=== PATIENT | male | born 1960 | race Caucasian/White ===

== ENCOUNTER 2022-10-06 12:06 | Inpatient (IN) | payer OTHER ==
[~2022-10-06] VITALS: Ht 193 cm; Wt 151.0 kg
[2022-10-06 13:18] LABS: Basophils # (auto) 0 10 ^3/uL (0-0.2); Basophils % (auto) 0.1 % (0.0-2.0); Eosinophils # (auto) 0 10 ^3/uL (0-0.8); Hematocrit 38.6 % (41.0-53.0); Hemoglobin 13.3 g/dL (13.5-17.5); Lymphocytes % (auto) 13.4 % (10.0-50.0); Mean Corpuscular Hemoglobin 29.2 pg (28.0-32.0); Mean Corpuscular Hgb Conc. 34.6 g/dL (32.0-36.0); Mean Corpuscular Volume 84.6 fL (80.0-100.0); Monocytes % (auto) 13.1 % (0.0-12.0); Neutrophils # (auto) 5.4 10 ^3/uL (1.6-8.6); Neutrophils % (auto) 73.4 % (37.0-80.0); Red Blood Cells 4.56 10^6/uL (4.5-5.90); Red Cell Distribution Width 13.9 % (11.8-14.3); White Blood Cell 7.3 10^3/uL (4.4-10.8)
[2022-10-06 13:56] LABS: Albumin 3.5 g/dL (3.4-5.0); Calcium 8.8 mg/dL (8.5-10.1); Potassium 3.3 mmol/L (3.5-5.1)
[2022-10-06 14:02] LABS: BUN/Creatinine Ratio 6.3 (10.0-20.0); Bilirubin, Total 0.6 mg/dL (0.2-1.0)
[2022-10-06 14:12] LABS: Urine Bacteria FEW /hpf (None Seen); Urine Blood TRACE /uL (Negative); Urine Specific Gravity 1.007 (1.001-1.035); Urine WBC 19 /hpf (0 - 3)
[2022-10-06] MEDS ORDERED: MORPHINE SULFATE 4 MG/ML SYR/VIAL IV ONE ×2 (17:15)
[2022-10-06] MEDS ORDERED: ONDANSETRON HCL 4 MG/2 ML VIAL IV ONE ×2 (17:15)
[2022-10-06] MEDS ORDERED: HYDROmorphone HCL 2 MG/ML VL/or syr IV PRN (19:30)
[2022-10-06] MEDS ORDERED: NITROGLYCERIN 0.4 MG SL TAB SL PRN (19:30)
[2022-10-06] MEDS ORDERED: LACTATED RINGER'S 1,000 ML IV SCH (20:15)
[2022-10-06] MEDS ORDERED: DEXTROSE (50%) 50ML SYRG IV PRN (20:15)
[2022-10-06] MEDS: HYDROmorphone HCL 2 MG/ML VL/or syr IV PRN (21:26)
[2022-10-06] MEDS: SODIUM CHLORIDE 0.9% 1,000 ML IV SCH (22:37)
[2022-10-06] MEDS: metroNIDAZOLE 500MG/100ML 100 ML IV SCH (22:37)
[2022-10-06] MEDS: PIPERACILLIN-TAZOB 3.375GM 100 ML IV SCH (23:46)
[2022-10-07] MEDS: InsuLIN REG 1unit/0.01ml Soln (100units/ml) SC SCH ×5 (00:30→22:00)
[2022-10-07] MEDS: ACCU-CHEK COMFORT CURVE STRIP VI SCH ×5 (00:30→21:17)
[2022-10-07] MEDS: SODIUM CHLORIDE 0.9% 1,000 ML IV SCH ×3 (04:30→20:30)
[2022-10-07] MEDS: ONDANSETRON HCL 4 MG/2 ML VIAL IV PRN ×3 (05:50→21:15)
[2022-10-07] MEDS: metroNIDAZOLE 500MG/100ML 100 ML IV SCH ×2 (06:11→13:38)
[2022-10-07 06:36] LABS: Basophils # (auto) 0 10 ^3/uL (0-0.2); Basophils % (auto) 0.1 % (0.0-2.0); Eosinophils # (auto) 0 10 ^3/uL (0-0.8); Hematocrit 35.9 % (41.0-53.0); Hemoglobin 12.6 g/dL (13.5-17.5); Lymphocytes # (auto) 1.1 10 ^3/uL (0.4-5.4); Lymphocytes % (auto) 17.5 % (10.0-50.0); Mean Corpuscular Hemoglobin 29.7 pg (28.0-32.0); Mean Corpuscular Volume 84.8 fL (80.0-100.0); Monocytes # (auto) 0.9 10 ^3/uL (0-1.3); Monocytes % (auto) 13.9 % (0.0-12.0); Neutrophils # (auto) 4.2 10 ^3/uL (1.6-8.6); Neutrophils % (auto) 68.5 % (37.0-80.0); Nucleated Red Blood Cells % 0.3 %; Red Blood Cells 4.23 10^6/uL (4.5-5.90); White Blood Cell 6.2 10^3/uL (4.4-10.8)
[2022-10-07 06:48] LABS: INR 1.05 (0.9-1.15); Partial Thromboplastin Time 28.1 SEC (24.5-34.5)
[2022-10-07 07:01] LABS: Potassium 3.6 mmol/L (3.5-5.1)
[2022-10-07 07:10] LABS: Albumin 3.2 g/dL (3.4-5.0); Bilirubin, Total 0.5 mg/dL (0.2-1.0); Calcium 8.6 mg/dL (8.5-10.1); Total Protein 6.8 g/dL (6.4-8.2)
[2022-10-07] MEDS ORDERED: GASTROGRAFIN 120 ML SOL ONE (09:03)
[2022-10-07] MEDS ORDERED: LIDOCAINE 2% JELLY 11ml (GLYDO) UR ONE (09:45)
[2022-10-07] MEDS: PIPERACILLIN-TAZOB 3.375GM 100 ML IV SCH (10:00)
[2022-10-07] MEDS: PANTOPRAZOLE 40 MG/10 ML VIAL INJ IV SCH (10:00)
[2022-10-07] MEDS ORDERED: DEXTROSE (50%) 50ML SYRG IV PRN (14:45)
[2022-10-07] MEDS: cefTRIAXone 1GM/50ML D5W 50 ML IV SCH (16:00)
[2022-10-07] MEDS: HYDROmorphone HCL 2 MG/ML VL/or syr IV PRN (21:15)
[2022-10-07 22:00] VITALS: BP 155/82
[2022-10-08 04:44] LABS: Urine Bacteria FEW /hpf (None Seen); Urine Blood 3+ /uL (Negative); Urine Specific Gravity 1.008 (1.001-1.035); Urine WBC 68 /hpf (0 - 3); Urine WBC Clumps PRESENT /hpf (None Seen)
[2022-10-08] MEDS: SODIUM CHLORIDE 0.9% 1,000 ML IV SCH ×3 (04:53→20:30)
[2022-10-08 04:58] LABS: Creatinine, Urine 76 mg/dL (30.0-125.0); Sodium Urine 62 mmol/L (40-220)
[2022-10-08 05:00] VITALS: BP 124/102
[2022-10-08] MEDS: InsuLIN REG 1unit/0.01ml Soln (100units/ml) SC SCH ×4 (06:00→21:52)
[2022-10-08] MEDS: ACCU-CHEK COMFORT CURVE STRIP VI SCH ×4 (06:01→21:52)
[2022-10-08 06:48] LABS: Basophils # (auto) 0 10 ^3/uL (0-0.2); Basophils % (auto) 0.1 % (0.0-2.0); Eosinophils # (auto) 0 10 ^3/uL (0-0.8); Hematocrit 38.5 % (41.0-53.0); Hemoglobin 13.2 g/dL (13.5-17.5); Lymphocytes % (auto) 14.3 % (10.0-50.0); Mean Corpuscular Hemoglobin 29.4 pg (28.0-32.0); Mean Corpuscular Hgb Conc. 34.2 g/dL (32.0-36.0); Mean Corpuscular Volume 85.9 fL (80.0-100.0); Monocytes # (auto) 0.8 10 ^3/uL (0-1.3); Monocytes % (auto) 11.5 % (0.0-12.0); Neutrophils # (auto) 5.1 10 ^3/uL (1.6-8.6); Neutrophils % (auto) 74.1 % (37.0-80.0); Nucleated Red Blood Cells % 0.1 %; Red Blood Cells 4.49 10^6/uL (4.5-5.90); Red Cell Distribution Width 14.1 % (11.8-14.3); White Blood Cell 6.9 10^3/uL (4.4-10.8)
[2022-10-08 07:08] LABS: Albumin 3.4 g/dL (3.4-5.0); Calcium 8.9 mg/dL (8.5-10.1); Potassium 3.8 mmol/L (3.5-5.1)
[2022-10-08 07:09] LABS: % Iron Saturation 17.3 % (20-55)
[2022-10-08 07:18] LABS: BUN/Creatinine Ratio 6.1 (10.0-20.0); Bilirubin, Direct 0.2 mg/dL (0-0.2); Bilirubin, Total 0.4 mg/dL (0.2-1.0); Total Protein 7.1 g/dL (6.4-8.2); Uric Acid 14.2 mg/dL (3.5-7.2)
[2022-10-08 07:30] VITALS: BP 153/68
[2022-10-08 07:40] LABS: Phosphorus 10.5 mg/dL (2.5-4.90)
[2022-10-08 09:00] VITALS: BP 153/68
[2022-10-08] MEDS: PANTOPRAZOLE 40 MG/10 ML VIAL INJ IV SCH (10:40)
[2022-10-08 13:00] VITALS: BP 161/79
[2022-10-08] MEDS: cefTRIAXone 1GM/50ML D5W 50 ML IV SCH (16:05)
[2022-10-08] MEDS: HYDROmorphone HCL 2 MG/ML VL/or syr IV PRN ×2 (16:06→22:17)
[2022-10-08] MEDS: ONDANSETRON HCL 4 MG/2 ML VIAL IV PRN ×2 (16:06→22:23)
[2022-10-08 17:00] VITALS: BP 160/81
[2022-10-08] MEDS: CALCIUM ACETATE 667 MG CAP PO SCH (18:13)
[2022-10-08 22:00] VITALS: BP 180/83
[2022-10-08] MEDS ORDERED: ONDANSETRON HCL 4 MG/2 ML VIAL IM ONE (22:15)
[2022-10-08] MEDS ORDERED: ONDANSETRON HCL 4 MG/2 ML VIAL IV ONE (22:30)
[2022-10-09] MEDS: SODIUM CHLORIDE 0.9% 1,000 ML IV SCH ×2 (04:30→16:00)
[2022-10-09 04:44] VITALS: BP 171/83
[2022-10-09] MEDS: ONDANSETRON HCL 4 MG/2 ML VIAL IV PRN ×3 (05:53→21:29)
[2022-10-09] MEDS: HYDROmorphone HCL 2 MG/ML VL/or syr IV PRN (05:54)
[2022-10-09] MEDS: METOPROLOL TARTRATE 25 MG TAB PO SCH ×2 (06:13→10:09)
[2022-10-09] MEDS: amLODIPine BESYLATE 5 MG TAB PO SCH ×2 (06:13→10:10)
[2022-10-09] MEDS: InsuLIN REG 1unit/0.01ml Soln (100units/ml) SC SCH ×4 (07:00→21:44)
[2022-10-09] MEDS: ACCU-CHEK COMFORT CURVE STRIP VI SCH ×4 (07:00→21:29)
[2022-10-09 09:00] VITALS: BP 175/90
[2022-10-09 09:39] LABS: BUN/Creatinine Ratio 6.3 (10.0-20.0); Calcium 9.2 mg/dL (8.5-10.1); Potassium 4.3 mmol/L (3.5-5.1)
[2022-10-09] MEDS: DOCUSATE SOD 100 MG CAP PO SCH ×2 (10:08→21:29)
[2022-10-09] MEDS: CALCIUM ACETATE 667 MG CAP PO SCH ×3 (10:08→16:47)
[2022-10-09] MEDS: ALLOPURINOL 100 MG TAB PO SCH (10:08)
[2022-10-09] MEDS: PANTOPRAZOLE 40 MG/10 ML VIAL INJ IV SCH (10:10)
[2022-10-09 13:00] VITALS: BP 153/97
[2022-10-09] MEDS ORDERED: BUMETANIDE 2.5mg/10ml (0.25 mg/ml) INJ IV ONE (14:30)
[2022-10-09] MEDS: cefTRIAXone 1GM/50ML D5W 50 ML IV SCH (16:48)
[2022-10-09 17:00] VITALS: BP 156/89
[2022-10-09] MEDS ORDERED: LACTULOSE 20Gm/30ML SOLN PO ONE (19:15)
[2022-10-09 21:35] VITALS: BP 162/93
[2022-10-09 23:05] VITALS: BP 145/61
[2022-10-10 04:52] VITALS: BP 169/99
[2022-10-10] MEDS: SODIUM CHLORIDE 0.9% 1,000 ML IV SCH ×2 (05:20→18:54)
[2022-10-10] MEDS: ONDANSETRON HCL 4 MG/2 ML VIAL IV PRN (06:19)
[2022-10-10] MEDS: ACCU-CHEK COMFORT CURVE STRIP VI SCH ×4 (06:19→21:24)
[2022-10-10 06:20] VITALS: BP 130/70
[2022-10-10] MEDS: InsuLIN REG 1unit/0.01ml Soln (100units/ml) SC SCH ×4 (06:23→22:52)
[2022-10-10 07:07] LABS: Immunoglobulin G, Serum 779 mg/dL (603-1613)
[2022-10-10 07:09] LABS: BUN/Creatinine Ratio 6.6 (10.0-20.0); Potassium 3.9 mmol/L (3.5-5.1)
[2022-10-10 09:00] VITALS: BP 187/89
[2022-10-10] MEDS: PANTOPRAZOLE 40 MG/10 ML VIAL INJ IV SCH (09:54)
[2022-10-10] MEDS: ALLOPURINOL 100 MG TAB PO SCH (09:54)
[2022-10-10] MEDS: METOPROLOL TARTRATE 25 MG TAB PO SCH ×2 (09:54→23:15)
[2022-10-10] MEDS: CALCIUM ACETATE 667 MG CAP PO SCH ×3 (09:54→18:24)
[2022-10-10] MEDS: amLODIPine BESYLATE 5 MG TAB PO SCH (09:55)
[2022-10-10] MEDS: DOCUSATE SOD 100 MG CAP PO SCH ×2 (09:55→23:14)
[2022-10-10 13:17] VITALS: BP 159/78
[2022-10-10 17:00] VITALS: BP 157/88
[2022-10-10] MEDS: cefTRIAXone 1GM/50ML D5W 50 ML IV SCH (18:24)
[2022-10-10 22:00] VITALS: BP 120/78
[2022-10-11 05:00] VITALS: BP 154/79
[2022-10-11 05:09] LABS: Hematocrit 37.7 % (41.0-53.0); Hemoglobin 13.1 g/dL (13.5-17.5)
[2022-10-11 05:12] LABS: Basophils # (auto) 0 10 ^3/uL (0-0.2); Basophils % (auto) 0.1 % (0.0-2.0); Eosinophils # (auto) 0 10 ^3/uL (0-0.8); Hematocrit 37.4 % (41.0-53.0); Lymphocytes # (auto) 1.3 10 ^3/uL (0.4-5.4); Lymphocytes % (auto) 15.3 % (10.0-50.0); Mean Corpuscular Hemoglobin 29.4 pg (28.0-32.0); Mean Corpuscular Hgb Conc. 34.8 g/dL (32.0-36.0); Mean Corpuscular Volume 84.6 fL (80.0-100.0); Monocytes # (auto) 0.8 10 ^3/uL (0-1.3); Monocytes % (auto) 9.4 % (0.0-12.0); Neutrophils # (auto) 6.2 10 ^3/uL (1.6-8.6); Neutrophils % (auto) 75.2 % (37.0-80.0); Nucleated Red Blood Cells % 0.1 %; Red Blood Cells 4.41 10^6/uL (4.5-5.90); Red Cell Distribution Width 13.9 % (11.8-14.3); White Blood Cell 8.3 10^3/uL (4.4-10.8)
[2022-10-11] MEDS: ONDANSETRON HCL 4 MG/2 ML VIAL IV PRN ×2 (05:17→22:12)
[2022-10-11 05:30] LABS: % Iron Saturation 34.3 % (20-55)
[2022-10-11 05:31] LABS: BUN/Creatinine Ratio 7.4 (10.0-20.0); Calcium 8.9 mg/dL (8.5-10.1); Potassium 4.1 mmol/L (3.5-5.1)
[2022-10-11] MEDS: InsuLIN REG 1unit/0.01ml Soln (100units/ml) SC SCH ×4 (06:43→22:10)
[2022-10-11] MEDS: ACCU-CHEK COMFORT CURVE STRIP VI SCH ×4 (06:43→21:54)
[2022-10-11] MEDS ORDERED: SODIUM CHL 0.9% 1000 ML BAG XX ONE (07:00)
[2022-10-11] MEDS: SODIUM CHLORIDE 0.9% 1,000 ML IV SCH ×2 (08:00→21:20)
[2022-10-11] MEDS: CALCIUM ACETATE 667 MG CAP PO SCH ×3 (08:00→18:15)
[2022-10-11 08:54] VITALS: BP 176/82
[2022-10-11] MEDS: DOCUSATE SOD 100 MG CAP PO SCH ×2 (09:06→21:53)
[2022-10-11] MEDS: ALLOPURINOL 100 MG TAB PO SCH (10:00)
[2022-10-11] MEDS: PANTOPRAZOLE 40 MG/10 ML VIAL INJ IV SCH (10:00)
[2022-10-11] MEDS: METOPROLOL TARTRATE 25 MG TAB PO SCH ×2 (11:41→21:54)
[2022-10-11] MEDS: amLODIPine BESYLATE 5 MG TAB PO SCH (11:41)
[2022-10-11] MEDS ORDERED: LIDOCAINE 2%HCL (LOCAL ANESTH.) INJ 20ML MDV ONE (11:50)
[2022-10-11 12:25] VITALS: BP 171/92
[2022-10-11] MEDS ORDERED: fentaNYL CITRATE 100 MCG/2 ML VL IV ONE (12:30)
[2022-10-11] MEDS ORDERED: MIDAZOLAM HCL 2MG/2ML 2ml VIAL (1mg/ml) IV ONE (12:30)
[2022-10-11] MEDS ORDERED: HEPARIN SODIUM (PORCINE) 5000 UNITS/ML 1ML VIAL ONE (13:16)
[2022-10-11] MEDS: cefTRIAXone 1GM/50ML D5W 50 ML IV SCH (16:00)
[2022-10-11 16:28] VITALS: BP 160/79
[2022-10-11] MEDS: HYDROmorphone HCL 2 MG/ML VL/or syr IV PRN (19:21)
[2022-10-11 20:38] LABS: Anion Gap 11 (5-15); BUN/Creatinine Ratio 7.2 (10.0-20.0); Blood Urea Nitrogen 72 mg/dL (7-18); Calcium 8.4 mg/dL (8.5-10.1); Carbon Dioxide 23 mmol/L (21-32); Chloride 107 mmol/L (98-107); GFR African American 7 mL/min; GFR Non-African American 6 mL/min; Glucose 246 mg/dL (74-106); Sodium 141 mmol/L (136-145)
[2022-10-11 22:00] VITALS: BP 138/65
[2022-10-12 05:00] VITALS: BP 115/71
[2022-10-12] MEDS ORDERED: LORazepam 2MG/ML-1ML VIAL IV PRN (05:00)
[2022-10-12] MEDS: ACCU-CHEK COMFORT CURVE STRIP VI SCH ×4 (06:36→21:35)
[2022-10-12] MEDS: InsuLIN REG 1unit/0.01ml Soln (100units/ml) SC SCH ×4 (06:38→21:35)
[2022-10-12] MEDS ORDERED: SODIUM CHL 0.9% 1000 ML BAG XX ONE (07:00)
[2022-10-12] MEDS: CALCIUM ACETATE 667 MG CAP PO SCH ×3 (08:00→17:45)
[2022-10-12 08:44] VITALS: BP 164/85
[2022-10-12 09:30] LABS: BUN/Creatinine Ratio 7.1 (10.0-20.0); Calcium 8.8 mg/dL (8.5-10.1); Potassium 4.2 mmol/L (3.5-5.1)
[2022-10-12] MEDS: PANTOPRAZOLE 40 MG/10 ML VIAL INJ IV SCH (10:00)
[2022-10-12] MEDS: amLODIPine BESYLATE 5 MG TAB PO SCH (10:00)
[2022-10-12] MEDS: ALLOPURINOL 100 MG TAB PO SCH (10:00)
[2022-10-12] MEDS ORDERED: TEMAZEPAM 15 MG CAP PO PRN (10:00)
[2022-10-12] MEDS: DOCUSATE SOD 100 MG CAP PO SCH ×2 (10:00→21:34)
[2022-10-12] MEDS: METOPROLOL TARTRATE 25 MG TAB PO SCH ×2 (10:00→21:34)
[2022-10-12 12:40] VITALS: BP 123/84
[2022-10-12] MEDS: cefTRIAXone 1GM/50ML D5W 50 ML IV SCH (16:23)
[2022-10-12 17:00] VITALS: BP 147/84
[2022-10-12] MEDS: ONDANSETRON HCL 4 MG/2 ML VIAL IV PRN (18:29)
[2022-10-12] MEDS ORDERED: EPOETIN ALFA-EPBX 10,000 UNIT/1ML VIAL SC ONE (21:00)
[2022-10-12 22:00] VITALS: BP 131/49
[2022-10-13] MEDS: ONDANSETRON HCL 4 MG/2 ML VIAL IV PRN ×3 (00:38→23:24)
[2022-10-13] MEDS: HYDROcodone-ACET 5/325MG TAB PO PRN ×3 (00:39→22:13)
[2022-10-13 05:00] VITALS: BP 125/60
[2022-10-13 06:00] LABS: Calcium 9.3 mg/dL (8.5-10.1); Potassium 3.9 mmol/L (3.5-5.1)
[2022-10-13] MEDS: InsuLIN REG 1unit/0.01ml Soln (100units/ml) SC SCH ×2 (06:05→11:30)
[2022-10-13] MEDS: ACCU-CHEK COMFORT CURVE STRIP VI SCH ×2 (06:05→11:56)
[2022-10-13 09:00] VITALS: BP 148/84
[2022-10-13] MEDS: ALLOPURINOL 100 MG TAB PO SCH (09:54)
[2022-10-13] MEDS: PANTOPRAZOLE 40 MG/10 ML VIAL INJ IV SCH (09:54)
[2022-10-13] MEDS: METOPROLOL TARTRATE 25 MG TAB PO SCH ×2 (09:55→22:12)
[2022-10-13] MEDS: amLODIPine BESYLATE 5 MG TAB PO SCH (09:55)
[2022-10-13] MEDS: DOCUSATE SOD 100 MG CAP PO SCH ×2 (09:55→22:14)
[2022-10-13] MEDS: CALCIUM ACETATE 667 MG CAP PO SCH ×3 (09:56→17:00)
[2022-10-13 13:00] VITALS: BP 132/71
[2022-10-13 15:30] LABS: Albumin 3.6 g/dL (3.4-5.0); Calcium 9.1 mg/dL (8.5-10.1); Magnesium 2.4 mg/dL (1.6-2.6); Potassium 4.3 mmol/L (3.5-5.1)
[2022-10-13 15:34] LABS: Bilirubin, Total 0.3 mg/dL (0.2-1.0); Total Protein 6.9 g/dL (6.4-8.2)
[2022-10-13 17:00] VITALS: BP 127/84
[2022-10-13] MEDS: cefTRIAXone 1GM/50ML D5W 50 ML IV SCH (17:01)
[2022-10-13] MEDS ORDERED: MAGNESIUM SULFATE 1GM/100ML 100 ML IV ONE (21:00)
[2022-10-13 22:00] VITALS: BP 145/85
[2022-10-14 05:00] VITALS: BP 154/84
[2022-10-14] MEDS ORDERED: SODIUM CHL 0.9% 1000 ML BAG XX ONE (07:00)
[2022-10-14 09:00] VITALS: BP 155/77
[2022-10-14] MEDS: DOCUSATE SOD 100 MG CAP PO SCH ×2 (09:13→22:30)
[2022-10-14] MEDS: CALCIUM ACETATE 667 MG CAP PO SCH ×3 (09:13→18:13)
[2022-10-14] MEDS: ALLOPURINOL 100 MG TAB PO SCH (09:13)
[2022-10-14] MEDS: PANTOPRAZOLE 40 MG/10 ML VIAL INJ IV SCH (09:13)
[2022-10-14] MEDS: amLODIPine BESYLATE 5 MG TAB PO SCH (10:00)
[2022-10-14] MEDS: METOPROLOL TARTRATE 25 MG TAB PO SCH ×2 (10:00→22:30)
[2022-10-14 11:12] LABS: Calcium 9.2 mg/dL (8.5-10.1); Potassium 4.2 mmol/L (3.5-5.1)
[2022-10-14 11:18] LABS: BUN/Creatinine Ratio 8.4 (10.0-20.0)
[2022-10-14 13:00] VITALS: BP 148/59
[2022-10-14 14:54] LABS: Basophils # (auto) 0.1 10 ^3/uL (0-0.2); Basophils % (auto) 0.6 % (0.0-2.0); Eosinophils # (auto) 0 10 ^3/uL (0-0.8); Hematocrit 37.4 % (41.0-53.0); Hemoglobin 12.4 g/dL (13.5-17.5); Lymphocytes # (auto) 1.4 10 ^3/uL (0.4-5.4); Lymphocytes % (auto) 14.5 % (10.0-50.0); Mean Corpuscular Hemoglobin 28.9 pg (28.0-32.0); Mean Corpuscular Hgb Conc. 33.1 g/dL (32.0-36.0); Mean Corpuscular Volume 87.2 fL (80.0-100.0); Monocytes # (auto) 0.7 10 ^3/uL (0-1.3); Monocytes % (auto) 7.5 % (0.0-12.0); Neutrophils # (auto) 7.4 10 ^3/uL (1.6-8.6); Neutrophils % (auto) 77.4 % (37.0-80.0); Red Blood Cells 4.29 10^6/uL (4.5-5.90); Red Cell Distribution Width 13.8 % (11.8-14.3); White Blood Cell 9.6 10^3/uL (4.4-10.8)
[2022-10-14 16:51] VITALS: BP 161/86
[2022-10-14] MEDS: cefTRIAXone 1GM/50ML D5W 50 ML IV SCH (18:13)
[2022-10-14] MEDS ORDERED: EPOETIN ALFA-EPBX 10,000 UNIT/1ML VIAL SC ONE (21:00)
[2022-10-14 22:00] VITALS: BP 174/87
[2022-10-15 05:00] VITALS: BP 165/80
[2022-10-15 06:42] LABS: BUN/Creatinine Ratio 9.1 (10.0-20.0); Potassium 4.3 mmol/L (3.5-5.1)
[2022-10-15 08:44] VITALS: BP 159/89
[2022-10-15] MEDS: DOCUSATE SOD 100 MG CAP PO SCH ×2 (08:47→21:17)
[2022-10-15] MEDS: PANTOPRAZOLE 40 MG/10 ML VIAL INJ IV SCH (08:47)
[2022-10-15] MEDS: ALLOPURINOL 100 MG TAB PO SCH (08:47)
[2022-10-15] MEDS: amLODIPine BESYLATE 5 MG TAB PO SCH (08:48)
[2022-10-15] MEDS: METOPROLOL TARTRATE 25 MG TAB PO SCH ×2 (08:48→21:17)
[2022-10-15] MEDS: CALCIUM ACETATE 667 MG CAP PO SCH ×3 (08:52→21:17)
[2022-10-15 13:00] VITALS: BP 148/77
[2022-10-15 16:34] VITALS: BP 153/78
[2022-10-15] MEDS: SOD CHL 0.45% 1,000 ML IV SCH (18:15)
[2022-10-16 01:31] VITALS: BP 156/90
[2022-10-16] MEDS: SOD CHL 0.45% 1,000 ML IV SCH ×2 (02:15→10:15)
[2022-10-16] MEDS: HYDROcodone-ACET 5/325MG TAB PO PRN (04:28)
[2022-10-16 06:53] LABS: BUN/Creatinine Ratio 10.7 (10.0-20.0); Calcium 9.3 mg/dL (8.5-10.1); Potassium 4.3 mmol/L (3.5-5.1)
[2022-10-16] MEDS: PANTOPRAZOLE 40 MG/10 ML VIAL INJ IV SCH (08:23)
[2022-10-16] MEDS: DOCUSATE SOD 100 MG CAP PO SCH (08:23)
[2022-10-16] MEDS: CALCIUM ACETATE 667 MG CAP PO SCH ×2 (08:23→11:32)
[2022-10-16] MEDS: ALLOPURINOL 100 MG TAB PO SCH (08:23)
[2022-10-16] MEDS: METOPROLOL TARTRATE 25 MG TAB PO SCH (08:24)
[2022-10-16] MEDS: amLODIPine BESYLATE 5 MG TAB PO SCH (08:24)
[2022-10-16 08:30] VITALS: BP 182/108
[2022-10-16 13:00] VITALS: BP 148/91
[2022-10-16] MEDS ORDERED: AMLO1TAB23 PO (14:04)
[2022-10-16] MEDS ORDERED: METO-289 PO (14:04)
[2022-10-16 14:38] VITALS: BP 148/91
[2022-10-17 13:02] LABS: Hepatitis A Ab IgM Negative; Hepatitis B Core IgM Negative; Hepatitis C Antibody Negative (Negative)
== END 2022-10-16 15:25 | disposition home or self-care (01) | DRG 674 ==
LOC: EDBD 12:06 → ER 12:06 → TELE 19:31 → TELE-WESTW 10-07 17:30
PROVIDERS: ADMIT Nurse Practitioner Family; ATTEND Internal Medicine Geriatric Medicine
PROC: 0JH63XZ Insertion of Tunneled Vascular Access Device into Chest Subcutaneous Tissue and Fascia, Percutaneous Approach (ICD-10-PCS; principal; 2022-10-11)
PROC: 02HV33Z Insertion of Infusion Device into Superior Vena Cava, Percutaneous Approach (ICD-10-PCS; 2022-10-11)
PROC: B5181ZA Fluoroscopy of Superior Vena Cava using Low Osmolar Contrast, Guidance (ICD-10-PCS; 2022-10-11)
PROC: B548ZZA Ultrasonography of Superior Vena Cava, Guidance (ICD-10-PCS; 2022-10-11)
DX: N17.9 Acute kidney failure, unspecified (principal); K57.32 Diverticulitis of large intestine without perforation or abscess without bleeding; K80.00 Calculus of gallbladder with acute cholecystitis without obstruction; N30.00 Acute cystitis without hematuria; Z68.41 Body mass index [BMI] 40.0-44.9, adult; E78.5 Hyperlipidemia, unspecified; N20.0 Calculus of kidney; R33.9 Retention of urine, unspecified; N13.9 Obstructive and reflux uropathy, unspecified; E66.9 Obesity, unspecified; E83.39 Other disorders of phosphorus metabolism; N21.0 Calculus in bladder; I12.9 Hypertensive chronic kidney disease with stage 1 through stage 4 chronic kidney disease, or unspecified chronic kidney disease; E11.22 Type 2 diabetes mellitus with diabetic chronic kidney disease; E66.01 Morbid (severe) obesity due to excess calories; I25.10 Atherosclerotic heart disease of native coronary artery without angina pectoris; N18.9 Chronic kidney disease, unspecified; Z79.84 Long term (current) use of oral hypoglycemic drugs; Z80.8 Family history of malignant neoplasm of other organs or systems; Z82.49 Family history of ischemic heart disease and other diseases of the circulatory system; Z83.3 Family history of diabetes mellitus; Z80.3 Family history of malignant neoplasm of breast; Z95.5 Presence of coronary angioplasty implant and graft
CPT/HCPCS: 36415; 36558; 71045; 74176; 74250; 76705; 76775; 76937; 77001; 77074; 78226; 78306; 80048; 80053; 80061; 80074; 80076; 81001; 82550; 82570; 82728; 82784; 82962; 83036; 83540; 83550; 83690; 83735; 83874; 83880; 83883; 84100; 84154; 84155; 84156; 84165; 84300; 84443; 84550; 85014; 85018; 85025; 85610; 85730; 86334; 86335; 87040; 87081; 87086; 87340; 90935; 93005; 93306; 96365; 96375; 99291; C9113; G0378; J0696; J1642; J1815; J2250; J2405; J2543; J3490

== ENCOUNTER 2024-03-08 08:39 | Inpatient (IN) | payer BC, OTHER ==
[~2024-03-08] VITALS: Ht 193 cm; Wt 159.1 kg
[~2024-03-08 08:39] MED LIST: AMLO1TAB23 PO; METO-289 PO
--- NOTE | 2024-03-08 08:58 | ECG ---
[facility] Test Date: 2024-03-08 Test Time: 08:44:40 Pat Name: MICHELLE SHEPHERD Department: ER Room: 0284T Gender: M Script Developer: CHRISTINA : 1960 Requested By: JOHN DAN Order Number: [id number] Reading MD: Nba Hu Measurements Intervals [place] Rate: 63 P: 30 DE: 202 QRS: 20 QRSD: 117 T: 55 QT: 425 QTc: 436 Interpretive Statements Sinus rhythm Nonspecific intraventricular conduction delay Inferior infarct, old Baseline wander in lead(s) V1 Electronically Signed On 03-10-2024 16:13:10 PST by Nba Hu Please click the below link to view image of tracing.
[2024-03-08 09:15] LABS: Basophils # (auto) 0.1 10 ^3/uL (0-0.2); Basophils % (auto) 0.4 % (0.0-2.0); Eosinophils # (auto) 0 10 ^3/uL (0-0.8); Hematocrit 43.9 % (41.0-53.0); Hemoglobin 14.6 g/dL (13.5-17.5); Lymphocytes # (auto) 1.8 10 ^3/uL (0.4-5.4); Lymphocytes % (auto) 12.9 % (10.0-50.0); Mean Corpuscular Hemoglobin 28.9 pg (28.0-32.0); Mean Corpuscular Hgb Conc. 33.4 g/dL (32.0-36.0); Mean Corpuscular Volume 86.6 fL (80.0-100.0); Monocytes # (auto) 0.7 10 ^3/uL (0-1.3); Monocytes % (auto) 5.3 % (0.0-12.0); Neutrophils # (auto) 11.2 10 ^3/uL (1.6-8.6); Neutrophils % (auto) 81.4 % (37.0-80.0); Platelet Count (auto) 234 10^3/uL (140-450); Red Blood Cells 5.07 10^6/uL (4.5-5.90); Red Cell Distribution Width 14.1 % (11.8-14.3); White Blood Cell 13.8 10^3/uL (4.4-10.8)
--- NOTE | 2024-03-08 09:16 | ED.PDOC ---
History of Present Illness HPI Comments 63 y/o M, with a Hx of asthma, CAD, CKF, chronic edema, pre-DM, HLD, HTN, obesity, PTCA, and marijuana and EtOH use and a FMHx of CA, PA, and DM, presents with c/o shortness of breath since yesterday, last night. Patient endorses on sudden and unprovoked onset of difficulty breathing with no relief or improv ement with at home nebulizer or CPAP device use. Patient reports no recent injuries, sick contact, travel, spoiled food intake, or substance use/exposure. Patient denies having any chest pain, dyspnea, cough, fever, chills, or other associated symptoms or modifiers at this time. Chief Complaint: Shortness of Breath Time Seen by MD: 09:00 Primary Care Provider: TARA Garcia Notes: Nurses Notes, Medications, Allergies Allergies: Coded Allergies: NO KNOWN ALLERGIES (Unverified , 10/06/22) Home Meds Active Scripts Amlodipine Besylate (Amlodipine Besylate) 10 Mg Tab, 1 TAB PO DAILY, #30 TAB 5 Refills Prov:MARIBEL TREVINO MD 10/16/22 Metoprolol Succinate (Metoprolol Succinate Er) 50 Mg Tab, 1 TAB PO DAILY, #30 TAB 5 Refills Prov:MARIBEL TREVINO MD 10/16/22 Information Source: Patient Mode of Arrival: Ambulatory Severity: Moderate Timing: Days Duration: Since onset Prehospital treatment: None Past Medical History PAST MEDICAL HISTORY: Asthma, CAD, CKF, DM (pre-DM), High Lipids, HTN Past Medical History (Other): chronic bilateral leg edema, obesity Surgical History: PTCA Surgical History (Other): right knee Sx Family History Family History: No family hx of HTN, No family hx ofKidney sean, No family hx of Liver sean, No family hx of Lung sean, No family hx of Stroke, Family hx of DM, Family hx of Cancer, Family hx of heart sean (PA) Social History Smoker: Non-Smoker Alcohol: Denies ETOH Use Drugs: Marijuana Lives In: Home Constitutional: denies: chills, diaphoresis, fatigue, fever, malaise, sweats, weakness, others EENTM: denies: blurred vision, double vision, ear bleeding, ear discharge, ear drainage, ear pain, ear ringing, eye pain, eye redness, hearing loss, mouth pain, mouth swelling, nasal discharge, nose bleeding, nose congestion, nose pain, photophobia, tearing, throat pain, throat swelling, voice changes, others Respiratory: reports: shortness of breath; denies: cough, hemoptysis, orthopnea, SOB at rest, SOB with excertion, stridor, wheezing, others Cardiovascular: denies: chest pain, dizzy spells, diaphoresis, Dyspnea on exertion, edema, irregular heart beat, left arm pain, lightheadedness, palpitations, PND, syncope, others Gastrointestinal: denies: abdomen distended, abdominal pain, blood streaked bowels, constipated, diarrhea, dysphagia, difficulty swallowing, hematemesis, melena, nausea, poor appetite, poor fluid intake, rectal bleeding, rectal pain, vomiting, others Genitourinary: denies: burning, dysuria, flank pain, frequency, hematuria, incontinence, penile discharge, penile sore, pain, testicle pain, testicle swelling, urgency, others Neurological: denies: dizziness, fainting, headache, left sided numbness, left sided weakness, numbness, paresthesia, pre-existing deficit, right sided numbness, right sided weakness, seizure, speech problems, tingling, tremors, weakness, others Musculoskeletal: denies: back pain, gout, joint pain, joint swelling, muscle pain, muscle stiffness, neck pain, others Integumetry: denies: bruises, change in color, change in hair/nails, dryness, laceration, lesions, lumps, rash, wounds, others Allergic/Immunocompromised: denies: Difficulty Healing, Frequent Infections, Hives, Itching, others Hematologic/Lymphatic: denies: anemia, blood clots, easy bleeding, easy bruising, swollen glands, others Endocrine: denies: excessive hunger, excessive sweating, excessive thirst, excessive urination, flushing, intolerance to cold, intolerance to heat, unexplained weight gain, unexplained weight loss, others Psychiatric: denies: anxiety, bipolar disorder, depression, hopeless, panic disorder, schizophrenia, sleepless, suicidal, others All Other Systems: Reviewed and Negative Physical Exam General Appearance: Moderate Distress, Obese HEENT: Normal ENT Inspection, Pharynx Normal, TMs Normal Neck: Full Range of Motion, Non-Tender, Normal, Normal Inspection Respiratory: Chest Non-Tender, Lungs Clear, No Accessory Muscle Use, No Respiratory Distress, Normal Breath Sounds Cardiovascular: No Edema, No JVD, No Murmur, No Gallop, Normal Peripheral Pulses, Regular Rate/Rhythm Breast Exam: Deferred Gastrointestinal: No Organomegaly, Non Tender, No Pulsatile Mass, Normal Bowel Sounds, Soft Genitalia: Deferred Pelvic: Deferred Rectal: Deferred Extremities: No calf tenderness, Normal capillary refill, No pedal edema Musculoskeletal : Apperance: Normal Neurologic: Alert, health safety and environment manager II-XII nml as Tested, Motor Weakness, Normal Affect, Normal Mood, No Sensory Deficits Cerebellar Function: Normal Reflexes: Normal Skin: Dry, Normal Color, Warm Lymphatic: No Adenopathy Was a procedure done? Was a procedure done?: No EKG EKG : Pulse Rate (adult): 63 [place]: Normal Cardiac Rhythm: NSR Block: None Hypertrophy: None ST: Normal Differential Dx Considerations may include: bronchitis, PNA, Covid19, URI, PE, asthma exacerbation X-Ray, Labs, Meds, VS Vital Signs Date Time Temp Pulse Resp B/P (MAP) Pulse Ox O2 Delivery O2 Flow Rate FiO2 03/08/24 09:16 63 03/08/24 08:44 63 03/08/24 08:41 98.0 72 24 161/69 (99) 99 Lab Test 03/08/24 10:05 03/08/24 08:51 Range/Units Troponin I High Sensitivity Pending 29901 *H </=54 ng/L White Blood Count 13.8 H 4.4-10.8 10^3/uL Red Blood Count 5.07 4.5-5.90 10^6/uL Hemoglobin 14.6 13.5-17.5 g/dL Hematocrit 43.9 41.0-53.0 % Mean Corpuscular Volume 86.6 80.0-100.0 fL Mean Corpuscular Hemoglobin 28.9 28.0-32.0 pg Mean Corpuscular Hemoglobin Concent 33.4 32.0-36.0 g/dL Red Cell Distribution Width 14.1 11.8-14.3 % Platelet Count 234 140-450 10^3/uL Mean Platelet Volume 7.9 6.9-10.8 fL Neutrophils (%) (Auto) 81.4 H 37.0-80.0 % Lymphocytes (%) (Auto) 12.9 10.0-50.0 % Monocytes (%) (Auto) 5.3 0.0-12.0 % Eosinophils (%) (Auto) 0.0 0.0-7.0 % Basophils (%) (Auto) 0.4 0.0-2.0 % Neutrophils # (Auto) 11.2 H 1.6-8.6 10 ^3/uL Lymphocytes # (Auto) 1.8 0.4-5.4 10 ^3/uL Monocytes # (Auto) 0.7 0-1.3 10 ^3/uL Eosinophils # (Auto) 0 0-0.8 10 ^3/uL Basophils # (Auto) 0.1 0-0.2 10 ^3/uL Nucleated Red Blood Cells 0.0 % Prothrombin Time 10.5 9.3-11.8 sec Prothrombin Time INR 0.99 0.9-1.15 Activated Partial Thromboplast Time 26.7 24.5-34.5 SEC D-Dimer, Quantitative 0.49 0.0-0.49 mg/L FEU Sodium Level 140 136-145 mmol/L Potassium Level 3.9 3.5-5.1 mmol/L Chloride Level 108 H 98-107 mmol/L Carbon Dioxide Level 23 20-31 mmol/L Anion Gap 9 5-15 Blood Urea Nitrogen 9 9-23 mg/dL Creatinine 1.07 0.700-1.30 mg/dL Glomerular Filtration Rate Calc 78 >90 mL/min BUN/Creatinine Ratio 8.4 L 10.0-20.0 Serum Glucose 151 H 74-106 mg/dL Calcium Level 10.1 8.7-10.4 mg/dL B-Type Natriuretic Peptide 87.56 0-100 pg/mL Current Medications Medications (Trade) Dose Ordered Sig/Naun Route Start Time Stop Time Status Last Admin Heparin Sodium (Porcine) 4,000 units ONCE ONCE IV 03/08/24 10:15 03/08/24 10:16 DC 03/08/24 10:38 Heparin Sodium/ Dextrose 250 ml @ 10 mls/hr Q24H IV 03/08/24 10:15 03/08/24 10:54 Aspirin 162 mg ONCE ONCE PO 03/08/24 10:30 03/08/24 10:31 DC 03/08/24 10:35 IV Hep-Lock was established The patient was given aspirin here in the emergency department's. The patient's CBC came back with an elevated white blood cell count of 13.8 but otherwise within normal limits The chemistry panel is within normal limits The D-dimer is within normal limits The BNP is within normal limits The UDS [place] pending [place] [address] There is now a concern that the patient may have had a non STEMI The patient was still complaining of some mild tightness to the chest. We are getting a Cardiology consult at this time. They did come and consult on the patient and they will be participating in the management of this patient. We have discussed the findings with the patient and told him that most likely this was a non STEMI. Images Reviewed?: Images reviewed and evaluated by me Time of 1ST Reevaluation: 09:30 Reevaluation 1ST: Unchanged Time of 2ND Reevaluation: 11:04 Reevaluation 2ND: Unchanged Patient Education/Counseling: Diagnosis, Treatment, Prognosis Family Education/Counseling: No Family Present Departure 1 Departure Time of Disposition: 11:04 Impression: Primary Impression: Non-STEMI (non-ST elevated myocardial infarction) Disposition: 09 ADMITTED INPATIENT Admit to: [facility] Condition: Guarded Critical Care Note Critical Care Time?: Yes (45 min-critical care time only) Stability Stability form required: Yes Unstable for transfer: ICU, CCU, PCU, [facility] (Intensive VS monitoring), ED Physician Assesment (Clinical assesment) Heart Score Heart Score: Heart Score Response (Comments) Value History Moderate Suspicious 1 EKG Normal 0 Age 45-64 1 Risk Factors >3 or Hx ASHD 2 Troponin >3 x's Normal limit 2 Total 6 I personally scribed for JOHN DAN MD ([email or web address]) on 03/08/24 at 09:16. Electronically submitted by Mendez Rodriguez [email or web address]). JOHN DAN MD Mar 08, 2024 09:16
[2024-03-08 09:24] LABS: Potassium 3.9 mmol/L (3.5-5.1); Sodium 140 mmol/L (136-145)
[2024-03-08 09:25] LABS: Anion Gap 9 (5-15); Calcium 10.1 mg/dL (8.7-10.4); Carbon Dioxide 23 mmol/L (20-31)
[2024-03-08 09:30] LABS: BUN/Creatinine Ratio 8.4 (10.0-20.0); Blood Urea Nitrogen 9 mg/dL (9-23); Glucose 151 mg/dL (74-106)
[2024-03-08 09:31] LABS: Chloride 108 mmol/L (98-107)
--- NOTE | 2024-03-08 10:00 | DVH ---
XY CHEST TWO VIEWS ROUTINE CLINICAL HISTORY: sob COMPARISON: None TECHNIQUE: Frontal and lateral view of the chest was obtained FINDINGS: Lines and Tubes: None Lungs: No focal consolidation. Pleura: No effusion. No pneumothorax. Cardiomediastinal contours: Unremarkable Bones: No acute osseous abnormality. IMPRESSION: No acute cardiopulmonary disease.
[2024-03-08 10:30] VITALS: PULSE 60; RESP 13; O2SAT 96
[2024-03-08] MEDS: ASPirin 81 mg TAB PO ONE (10:35)
[2024-03-08] MEDS: HEPARIN SODIUM (PORCINE) 5000 UNITS/ML 1ML VIAL IV ONE ×2 (10:38→22:00)
[2024-03-08 10:42] LABS: INR 0.99 (0.9-1.15); Partial Thromboplastin Time 26.7 SEC (24.5-34.5); Prothrombin Time 10.5 sec (9.3-11.8)
--- NOTE | 2024-03-08 10:51 | DVHINCON2 ---
Date Seen: Mar 08, 2024 Referring Physician MD Dina Reason for Consultation NSTEMI History of Present Illness This is a 63-year-old male patient who presents to emergency room with chief complaint of shortness of breath that began at approximately 9:00 p.m. last night. The patient also reports new onset chest pressure that began this morning. He describes the chest pain as unprovoked, constant, pressure-like in nature, left-sided, and nonradiating. Initial twelve lead electrocardiogram reveals normal sinus rhythm with first-degree AV block and Q wave to inferior leads. [place] [address]os/L. Significant past medical history includes coronary artery disease status post PTCA x1 SANAM in 2012, hypertension, asthma, sleep apnea with CPAP use, obstructive uropathy with acute kidney injury and temporary hemodialysis (now resolved), and morbid obesity. The patient mentions that he was taken off of aspirin therapy on his last admission to this hospital (10/2022),when he was undergoing hemodialysis. He states he was never told if he should restart the aspirin therapy. The patient reports [facility] [place]. Past Medical History Past medical history reviewed. No other significant than mentioned above. Past Surgical History Right knee ACL repair Family History: Diabetes mellitus G8 MOTHER FH: cancer G8 MOTHER G8 FATHER G8 SISTER Hypertension G8 MOTHER Family History Family history reviewed. Social History Patient admits to occasional marijuana use, denies all other illicit drugs Patient denies any tobacco use Patient denies any alcohol use Allergies: Coded Allergies: NO KNOWN ALLERGIES (Unverified , 10/06/22) Home Meds Active Scripts Amlodipine Besylate (Amlodipine Besylate) 10 Mg Tab, 1 TAB PO DAILY, #30 TAB 5 Refills Prov:MARIBEL TREVINO MD 10/16/22 Metoprolol Succinate (Metoprolol Succinate Er) 50 Mg Tab, 1 TAB PO DAILY, #30 TAB 5 Refills Prov:MARIBEL TREVINO MD 10/16/22 Home Meds Home medications reviewed. Current Medications Current Medications Medications (Trade) Dose Ordered Sig/Naun Route PRN Reason Start Time Stop Time Status Last Admin Heparin Sodium/ Dextrose 250 ml @ 10 mls/hr Q24H IV 03/08/24 10:15 Review of Systems Constitutional: No symptom reported Ears, Nose, & Throat: No symptom reported Eyes: No symptom reported Neurological: No symptoms reported Pulmonary/Respiratory: Shortness of breath Cardiovascular: Chest pressure Gastrointestinal: No symptom reported Genitourinary: No symptom reported Musculoskeletal: No symptom reported Skin: No symptom reported Psychiatric: No symptom reported Endocrine: No symptom reported Hematologic/Lymphatic: No symptom reported Vital Signs Vital Signs Date Time Temp Pulse Resp B/P (MAP) Pulse Ox O2 Delivery O2 Flow Rate FiO2 03/08/24 09:16 63 03/08/24 08:41 98.0 24 161/69 (99) 99 Physical Exam General Appearance: Cooperative. Morbidly obese Pulmonary/Respiratory: Clear, bilateral breaths sounds. Cardiovascular/Chest: Regular rate and rhythm. Peripheral Pulses: 2+ Radial (R). 2+ Radial (L). Abdominal Exam: Normal bowel sounds. Ankle Exam: Nonpitting bilateral ankle edema Lower extremities: Nonpitting bilateral lower extremity edema Neuro/Mental Status: A/OX4, coherent. Thoughts/Psych: Normal thought pattern. Appropriate mood and affect. Good judgment and insight. Appearance: No acute distress. Skin Exam: Normal inspection. Normal color. Warm and dry. Labs/Diagnostic Data Labs Test 03/08/24 10:05 03/08/24 08:51 Range/Units White Blood Count 13.8 H 4.4-10.8 10^3/uL Red Blood Count 5.07 4.5-5.90 10^6/uL Hemoglobin 14.6 13.5-17.5 g/dL Hematocrit 43.9 41.0-53.0 % Mean Corpuscular Volume 86.6 80.0-100.0 fL Mean Corpuscular Hemoglobin 28.9 28.0-32.0 pg Mean Corpuscular Hemoglobin Concent 33.4 32.0-36.0 g/dL Red Cell Distribution Width 14.1 11.8-14.3 % Platelet Count 234 140-450 10^3/uL Mean Platelet Volume 7.9 6.9-10.8 fL Neutrophils (%) (Auto) 81.4 H 37.0-80.0 % Lymphocytes (%) (Auto) 12.9 10.0-50.0 % Monocytes (%) (Auto) 5.3 0.0-12.0 % Eosinophils (%) (Auto) 0.0 0.0-7.0 % Basophils (%) (Auto) 0.4 0.0-2.0 % Neutrophils # (Auto) 11.2 H 1.6-8.6 10 ^3/uL Lymphocytes # (Auto) 1.8 0.4-5.4 10 ^3/uL Monocytes # (Auto) 0.7 0-1.3 10 ^3/uL Eosinophils # (Auto) 0 0-0.8 10 ^3/uL Basophils # (Auto) 0.1 0-0.2 10 ^3/uL Nucleated Red Blood Cells 0.0 % D-Dimer, Quantitative 0.49 0.0-0.49 mg/L FEU Sodium Level 140 136-145 mmol/L Potassium Level 3.9 3.5-5.1 mmol/L Chloride Level 108 H 98-107 mmol/L Carbon Dioxide Level 23 20-31 mmol/L Anion Gap 9 5-15 Blood Urea Nitrogen 9 9-23 mg/dL Creatinine 1.07 0.700-1.30 mg/dL Glomerular Filtration Rate Calc 78 >90 mL/min BUN/Creatinine Ratio 8.4 L 10.0-20.0 Serum Glucose 151 H 74-106 mg/dL Calcium Level 10.1 8.7-10.4 mg/dL B-Type Natriuretic Peptide 87.56 0-100 pg/mL Assessment NSTEMI, rule out progressive coronary artery disease Coronary artery disease status post PTCA x1 SANAM in 2012 (off Aspirin) Hypertension Morbid obesity Marijuana use Plan/Recommendation We will continue with the following plan/recommendations (Dr. Mancia): * Echocardiogram to evaluate cardiac function * Chest pain protocol * JULIETTE score: 3 points * HEART score: 7 points (high score) * Continue heparin drip per pharmacy protocol * BP control * Lipid-lowering agent Patient seen and examined at bedside with Dr. Mancia. Given the patient's clinical presentation, significantly elevated troponin level, and elevated JULIETTE/HEART score, we will recommend for the patient to undergo a coronary angiogram with left heart catheterization. The procedure was discussed with the patient in full detail including risks and benefits. Risks include but are not limited to bleeding, contrast induced nephropathy, stroke, and even . The patient understands and is agreeable to undergo the procedure. We will schedule the patient at first availability on 03/09/2024. Thank you for allowing us to care for this patient. Please call with any questions or concerns. Critical care time spent: 44 minutes This medical document was created using an electronic medical record system with voice recognition software and computerized dictation system. Although this document has been carefully reviewed, there might still be some phonetic and typographical errors. Occasional wrong-word or ``sound-alike substitutions may have occurred due to the inherent limitations of voice recognition software. These areas are purely typographical due to imperfections of the software programs and do not reflect any compromise in the patient's medical care. Please read the chart carefully and recognize, using context, where these substitutions have occurred. Plan discussed with: Patient Date of Service: Mar 08, 2024 Billing Provider: MAGDA MANCIA MD Cardiology Common Codes: 51043-[id number] INP/OBS CARE (High) Cardiology Consultation Codes: [id number] CONSULT <45MIN MEL CUNHA Mar 08, 2024 10:51
[2024-03-08] MEDS: HEPARIN DRIP/D5W 100UNITS/ML 250 ML IV SCH ×2 (10:54→22:00)
[2024-03-08 11:33] LABS: Urine Bacteria None Seen /hpf (None Seen)
[2024-03-08 11:48] LABS: Urine Blood Negative /uL (Negative); Urine Clarity Clear (Clear); Urine Color Light-Yellow (Yellow); Urine Mucus FEW (None Seen); Urine Protein, UAD TRACE (Negative); Urine Specific Gravity 1.018 (1.001-1.035); Urine Urobilinogen Normal (Negative); Urine WBC 22 /hpf (0 - 3)
[2024-03-08 12:00] LABS: Amphetamine Screen, Urine Neg (NEGATIVE); Barbiturate Scree,Urine Neg (NEGATIVE); Benzodiazephine Screen, Urine Neg (NEGATIVE); Cannabinoid Screen, Urine Pos (NEGATIVE); Cocaine Screen, Urine Neg (NEGATIVE); Opiate Scree,Urine Neg (NEGATIVE); Phencyclidine Screen, Urine Neg (NEGATIVE)
--- NOTE | 2024-03-08 12:47 | DVHHP2 ---
History of Present Illness Reason for Visit: chest pain History of Present Illness Efren Dupont is a 63YO M with a pmHx of morbid obesity, asthma, CAD, CKD, chronic edema, DM, HLD, HTN, obesity, PTCA, marijuana, etoh abuse who presents with sob x 2 days. Patient reports he used speed over 20 years ago and quit. Patient reports eating deep fried turkey and developing weakness and SOB since then. Patient states current chest pain is 6/10 and throbbing. Patient uses a CPAP machine for sleep apnea. Patient denies abdominal pain, N/V/D, fever, chills, or flank pain. Cardiovascular: CAD, HTN, hyperipidemia Pulmonary: Asthma Renal/: Chronic renal failure Endocrine: Diabetes Past Surgical History: Other (Right ACL replacement) Family History: None Smoke: Quit ALCOHOL: occassional Drugs: Marijuana Lives: Alone Domestic Violence: Neg Review of Systems Constitutional: No: Fever, Chills, Sweats, Weakness, Malaise, Other Eyes: No: Pain, Vision change, Conjunctivae inflammation, Eyelid inflammation, Other, Redness ENT: No: Ear pain, Ear discharge, Nose pain, Nose discharge, Nose congestion, Mouth pain, Mouth swelling, Throat pain, Throat swelling, Other Respiratory: Shortness of breath; No: Cough, Dry, SOB with excertion, Wheezing, Hemoptysis, Pleuritic Pain, Sputum, Wheezing, Other Cardiovascular: Chest Pain Gastrointestinal: No: Nausea, Vomiting, Abdominal Pain, Diarrhea, Constipation, Melena, Hematochezia, Other Genitourinary: No Dysuria, No Frequency, No Incontinence, No Hematuria, No Retention, No Other Musculoskeletal: No: other, neck pain, shoulder pain, arm pain, back pain, hand pain, leg pain, foot pain Skin: No: Rash, Lesions, Jaundice, Bruising, Other Neurological: No: Weakness, Numbness, Incoordination, Change in speech, Confusion, Seizures, Other Allergies: Coded Allergies: NO KNOWN ALLERGIES (Unverified , 10/06/22) Medications Current Medications Medications Dose Ordered Sig/Naun Route Start Time Stop Time Status Last Admin Dose Admin Heparin Sodium/ Dextrose 250 ml @ 10 mls/hr Q24H IV 03/08/24 10:15 03/08/24 10:54 10 MLS/HR Exam Vital Signs Vital Signs Date Time Temp Pulse Resp B/P (MAP) Pulse Ox O2 Delivery O2 Flow Rate FiO2 03/08/24 10:30 98.0 60 13 162/83 (109) 97 98.0 03/08/24 10:30 Room Air* 0 21 General Appearance: Alert, Oriented X3, Cooperative, mild distress HEENT: PERRLA, EOMI, Mucous membr. moist/pink Respiratory: Normal air movement Cardiovascular: Normal S1, Normal S2 Abdominal: Normal bowel sounds, Soft, No tenderness, No hepatospenomegaly, No masses Extremities: No clubbing, No cyanosis, No edema, Normal pulses, No tenderness/swelling Skin: No rashes, No breakdown, No significant lesion Neuro: Normal gait, Normal speech, Strength at 5/5 X4 ext, Normal tone, S ensation intact Psych/Mental Status: Mental status NL, Mood NL Labs/Xrays Labs Test 03/08/24 11:45 03/08/24 11:15 03/08/24 08:51 Range/Units Urine Color Light-yellow Yellow Urine Clarity Clear Clear Urine pH 6.0 5.0-9.0 Urine Specific [place] 1.018 1.001-1.035 Urine Protein Trace H Negative Urine Ketones Negative Negative Urine Blood Negative Negative /uL Urine Nitrite Negative Negative Urine Bilirubin Negative Negative Urine Urobilinogen Normal Negative mg/dL Urine Leukocyte Esterase 1+ Negative /uL Urine RBC 1 0 - 3 /hpf Urine WBC 22 0 - 3 /hpf Urine Squamous Epithelial Cells Few <5 /hpf Urine Bacteria None seen None Seen /hpf Urine Mucus Few None Seen Urine Glucose Normal Normal mg/dL Urine Opiates Screen Neg NEGATIVE Urine Fentanyl Screen Neg NEGATIVE Urine Barbiturates Screen Neg NEGATIVE Urine Phencyclidine Screen Neg NEGATIVE Urine Amphetamines Screen Neg NEGATIVE Urine Benzodiazepines Screen Neg NEGATIVE Urine Cocaine Screen Neg NEGATIVE Urine Cannabinoids Screen Pos NEGATIVE White Blood Count 13.8 H 4.4-10.8 10^3/uL Red Blood Count 5.07 4.5-5.90 10^6/uL Hemoglobin 14.6 13.5-17.5 g/dL Hematocrit 43.9 41.0-53.0 % Mean Corpuscular Volume 86.6 80.0-100.0 fL Mean Corpuscular Hemoglobin 28.9 28.0-32.0 pg Mean Corpuscular Hemoglobin Concent 33.4 32.0-36.0 g/dL Red Cell Distribution Width 14.1 11.8-14.3 % Platelet Count 234 140-450 10^3/uL Mean Platelet Volume 7.9 6.9-10.8 fL Neutrophils (%) (Auto) 81.4 H 37.0-80.0 % Lymphocytes (%) (Auto) 12.9 10.0-50.0 % Monocytes (%) (Auto) 5.3 0.0-12.0 % Eosinophils (%) (Auto) 0.0 0.0-7.0 % Basophils (%) (Auto) 0.4 0.0-2.0 % Neutrophils # (Auto) 11.2 H 1.6-8.6 10 ^3/uL Lymphocytes # (Auto) 1.8 0.4-5.4 10 ^3/uL Monocytes # (Auto) 0.7 0-1.3 10 ^3/uL Eosinophils # (Auto) 0 0-0.8 10 ^3/uL Basophils # (Auto) 0.1 0-0.2 10 ^3/uL Nucleated Red Blood Cells 0.0 % Prothrombin Time 10.5 9.3-11.8 sec Prothrombin Time INR 0.99 0.9-1.15 Activated Partial Thromboplast Time 26.7 24.5-34.5 SEC D-Dimer, Quantitative 0.49 0.0-0.49 mg/L FEU Sodium Level 140 136-145 mmol/L Potassium Level 3.9 3.5-5.1 mmol/L Chloride Level 108 H 98-107 mmol/L Carbon Dioxide Level 23 20-31 mmol/L Anion Gap 9 5-15 Blood Urea Nitrogen 9 9-23 mg/dL Creatinine 1.07 0.700-1.30 mg/dL Glomerular Filtration Rate Calc 78 >90 mL/min BUN/Creatinine Ratio 8.4 L 10.0-20.0 Serum Glucose 151 H 74-106 mg/dL Calcium Level 10.1 8.7-10.4 mg/dL B-Type Natriuretic Peptide 87.56 0-100 pg/mL XY CHEST TWO VIEWS ROUTINE CLINICAL HISTORY: sob FINDINGS: Lines and Tubes: None Lungs: No focal consolidation. Pleura: No effusion. No pneumothorax. Cardiomediastinal contours: Unremarkable Bones: No acute osseous abnormality. IMPRESSION: No acute cardiopulmonary disease. Assessment/Plan Assessment/Plan Assessment: NSTEMI UTI Elevated trop's Morbid obesity Hx of asthma CAD CKD DM HLD HTN sleep apnea marijuana use Plan: Admit to tele Heparin drip Cards cx cardiac cath Pain management IV antibiotics Antiemetics Cards cx EKG noted CXR noted ECHO TSH Lipid panel Urine drug screen Trend Troponin's ISS and accuchecks Diet as tolerated Monitor labs Home meds reconciled Plan discussed with: Patient Problem List: (1) NSTEMI (non-ST elevated myocardial infarction) (2) Non-STEMI (non-ST elevated myocardial infarction) Date of Service: Mar 08, 2024 Billing Provider: NAHUM WATSON Common Visit Codes: [id number] INP/OBS CARE (MOD) NAHUM WATSON Mar 08, 2024 12:47
[2024-03-08] MEDS ORDERED: ONDANSETRON HCL 4 MG/2 ML VIAL IV PRN (13:45)
[2024-03-08] MEDS ORDERED: NITROGLYCERIN 0.4 MG SL TAB SL PRN ×2 (13:45)
[2024-03-08] MEDS ORDERED: MORPHINE SULFATE 4 MG/ML SYR/VIAL IV PRN (13:45)
[2024-03-08] MEDS ORDERED: MORPHINE SULFATE INJ 2 MG/ml SYRG IV PRN (13:45)
[2024-03-08] MEDS: cefTRIAXone 1GM/50ML D5W 50 ML IV ONE (13:45)
[2024-03-08] MEDS ORDERED: DEXTROSE (50%) 50ML SYRG IV PRN (13:45)
[2024-03-08 14:30] LABS: Magnesium 2.2 mg/dL (1.6-2.6)
[2024-03-08] MEDS: ACCU-CHEK COMFORT CURVE STRIP VI SCH (17:09)
[2024-03-08] MEDS: InsuLIN REG 1unit/0.01ml Soln (100units/ml) SC SCH (17:12)
[2024-03-08] MEDS: cefTRIAXone 1GM/50ML D5W 50 ML IV SCH (17:19)
[2024-03-08 19:25] LABS: INR 1.01 (0.9-1.15); Partial Thromboplastin Time 27.7 SEC (24.5-34.5); Prothrombin Time 10.7 sec (9.3-11.8)
[2024-03-08 22:48] VITALS: BP 160/74; PULSE 65; RESP 20; TEMP 97.9; O2SAT 93
[2024-03-08 22:49] VITALS: BP 160/74; PULSE 65; PULSE 92; RESP 18; RESP 20; TEMP 97.9; O2SAT 92; O2SAT 93
[2024-03-09] VITALS (11 sets, daily range): BP systolic 138–188; BP diastolic 76–118; PULSE 65–84; RESP 14–20; TEMP 97.3–98.8; O2SAT 93–98
[2024-03-09] MEDS ORDERED: ALLO100T PO (02:11)
[2024-03-09] MEDS ORDERED: LOSA-533 PO (02:12)
[2024-03-09] MEDS ORDERED: LISI10TA34 PO (02:12)
[2024-03-09 07:46] LABS: Alanine Aminotransferase 42 U/L (7-40); Albumin 4.3 g/dL (3.2-4.8); Alkaline Phosphatase 91 U/L (46-116); Anion Gap 11 (5-15); Aspartate Aminotransferase 73 U/L (13-40); BUN/Creatinine Ratio 12.4 (10.0-20.0); Bilirubin, Total 0.6 mg/dL (0.2-1.0); Blood Urea Nitrogen 13 mg/dL (9-23); Calcium 9.8 mg/dL (8.7-10.4); Carbon Dioxide 21 mmol/L (20-31); Chloride 108 mmol/L (98-107); Glucose 135 mg/dL (74-106); Magnesium 2.1 mg/dL (1.6-2.6); Potassium 3.7 mmol/L (3.5-5.1); Sodium 140 mmol/L (136-145); Total Protein 6.9 g/dL (5.7-8.2)
[2024-03-09] MEDS: HEPARIN IN NS 1000Units/500mL 1,500 ML ONE (07:51)
[2024-03-09] MEDS: IODIXANOL 320MG/ML 100ML BTL IV ONE (07:51)
[2024-03-09 07:54] LABS: Basophils # (auto) 0 10 ^3/uL (0-0.2); Basophils % (auto) 0.1 % (0.0-2.0); Eosinophils # (auto) 0 10 ^3/uL (0-0.8); Eosinophils % (auto) 0.1 % (0.0-7.0); Hematocrit 40.8 % (41.0-53.0); Lymphocytes # (auto) 1.8 10 ^3/uL (0.4-5.4); Lymphocytes % (auto) 21.4 % (10.0-50.0); Mean Corpuscular Hemoglobin 29.7 pg (28.0-32.0); Mean Corpuscular Hgb Conc. 34.4 g/dL (32.0-36.0); Mean Corpuscular Volume 86.4 fL (80.0-100.0); Monocytes # (auto) 0.6 10 ^3/uL (0-1.3); Monocytes % (auto) 7.5 % (0.0-12.0); Neutrophils # (auto) 6.1 10 ^3/uL (1.6-8.6); Neutrophils % (auto) 70.9 % (37.0-80.0); Nucleated Red Blood Cells % 0.5 %; Platelet Count (auto) 186 10^3/uL (140-450); Red Blood Cells 4.72 10^6/uL (4.5-5.90); Red Cell Distribution Width 14.2 % (11.8-14.3); White Blood Cell 8.6 10^3/uL (4.4-10.8)
[2024-03-09] MEDS: HEPARIN SODIUM (PORCINE) 5000 UNITS/ML 1ML VIAL ONE (09:49)
[2024-03-09] MEDS: ANGIOMAX 250 MG VIAL IV ONE ×2 (09:49→10:39)
[2024-03-09] MEDS: VERAPAMIL 2.5MG/ML INJ 2ML VIAL IV ONE (09:49)
[2024-03-09] MEDS: MIDAZOLAM HCL 2MG/2ML 2ml VIAL (1mg/ml) ONE (09:50)
[2024-03-09] MEDS: LIDOCAINE 2%HCL (LOCAL ANESTH.) INJ 20ML MDV ONE (09:50)
[2024-03-09] MEDS: SODIUM CHL 0.9% 50 ML ONE ×2 (09:50→10:39)
[2024-03-09] MEDS: fentaNYL CITRATE 100 MCG/2 ML VL ONE (09:50)
[2024-03-09] MEDS: DOCUSATE SOD 100 MG CAP PO SCH (10:00)
[2024-03-09] MEDS: METOPROLOL SUCCINATE XL 50 MG TAB PO SCH (10:00)
[2024-03-09] MEDS: EPTIFIBATIDE INJ (2MG/ML) 10ML VIAL IV ONE (10:49)
[2024-03-09] MEDS: ASPirin 81 mg TAB ONE (11:19)
[2024-03-09] MEDS: CLOPIDOGREL BISULFATE 75 MG TAB ONE (11:19)
[2024-03-09] MEDS: amLODIPine BESYLATE 5 MG TAB PO SCH (11:32)
--- NOTE | 2024-03-09 13:02 | DVHOP2 ---
Operative Report -Cardiology Report Details Date: 03/09/24 Preop Diagnosis: High-risk non ST-elevation myocardial infarction Postop Diagnosis: Complete occlusion of the right coronary artery requiring urgent PCI using two drug-eluting stents with excellent final result. Surgeon: Jose Antonio Davenport MD Anesthesiologist: Conscious sedation using25 mcg of fentanyl as well as a mg midazolam. It was given under direct supervision of the primary cardiology manager myself in the presence attending nurses. Patient was monitored for total of35 minutes without obvious complication. Anesthesia: Local Consent: The patient was informed of the risks and benefits of the procedure. These include but are not limited to complications of anesthesia, postoperative infection, incomplete relief of symptoms, recurrence of symptoms, damage to blood vessels, nerves and tendons, deep venous thrombosis, pulmonary embolism and possible need for repeat surgery in the future. Indications for Surgery: This is a 63-year-old male patient who presents to emergency room with chief complaint of shortness of breath that began at approximately 9:00 p.m. last night. The patient also reports new onset chest pressure that began this morning. He describes the chest pain as unprovoked, constant, pressure-like in nature, left-sided, and nonradiating. Initial twelve lead electrocardiogram reveals normal sinus rhythm with first-degree AV block and Q wave to inferior leads. Initial troponin level of 15779uu/L. Significant past medical history includes coronary artery disease status post PTCA x1 SANAM in 2012, hypertension, asthma, sleep apnea with CPAP use, obstructive uropathy with acute kidney injury and temporary hemodialysis (now resolved), and morbid obesity. The patient mentions that he was taken off of aspirin therapy on his last admission to this hospital (10/2022),when he was undergoing hemodialysis. He states he was never told if he should restart the aspirin therapy. The patient [facility] [place] Name of Procedure Performed 1. Left heart catheterization with left ventricular end-diastolic pressure measurement. 2. Selective right and left coronary angiography utilizing right transradial approach. 3. Primary PCI to occluded mid segment right coronary artery using two drug- eluting stent. 4. Conscious sedation using25 mcg of fentanyl as well as a mg IV midazolam. Procedure Details Procedure Details: Procedure note vascular access: After informed consent was obtained, risks, benefits, complications, and alternatives were discussed in details with the patient who agrees to have the procedure done. At the beginning of the proced ure patient received conscious sedation using25 mcg of fentanyl as well as a mg midazolam. The right in the right wrist area were prepped and draped in the regular sterile fashion. Before 1 cc of xylocaine was given locally for anesthesia. Finally a six Monegasque sheath was placed using modified Seldinger technique to the right radial artery. Patient received with a a cocktail of 2.5 mg of verapamil as a has well as 100 mcg of nitroglycerin intra-arterially to prevent vasospasm. Patient was on continuous IV heparin infusion. A preshaped tiger catheter as well as the Ren left was used to engage the right and left coronary system respectively. A Ren right guiding catheter was used to engage the right coronary system for primary PCI to mid occluded RCA. Findings were as follows: 1. Left heart catheterization with left ventricular end-diastolic pressure measurement: With the help of a tiger five Monegasque catheter as well as a EVRGR J-tip wire we were able to cross the aortic valve and measured left ventricular end-diastolic pressure which was elevated at 17 mm of mercury. There was no significant gradient across the aortic valve on the pullback. 2. Selective right and left coronary angiography utilizing right transradial approach: 1. Left main comes off the left coronary cusp it is widely patent vessel it bifurcates into a large left anterior descending artery and medium-sized left circumflex vessel. 2. Left anterior descending artery has widely patent stents of the proximal vascular bed. It has mild irregularity involving the 2nd diagonal branch at 60%. 3. The left circumflex artery is medium-sized vessel it gives rise to two obtuse marginal branches. It has mild irregularity but no significant stenosis. 4. The right coronary artery comes off the right coronary cusp is a large dominant system, at the proximal to mid segment of the right coronary artery there is complete occlusion likely the culprit of the patient's presentation. 3. Successful PCI to mid right coronary artery using two drug-eluting stent: The diagnostic Ren right was exchanged for a Ren right guiding catheter, a Demario blue wire was used to cross the lesion with the help of a 2.5 x 15 balloon. The lesion was then pre-dilated the different spots up to 12 atmospheric pressures. Finally it was stented using 3.5 x 30 and four [address] ug-eluting stent distal to proximal respectively. Excellent final result obtained no obvious complication apart from sluggish flow and distal embolization for which a tiger stat intracoronary infusion was administered with a dramatic improvement of flow. Patient received bivalirudin continuous IV infusion during the during the procedure, as well as loading dose of 600 mg of Plavix as well as 162 mg of aspirin. Impression and plan: 1. Successful PCI to mid right coronary artery occlusion using two drug-eluting stent. 2. Widely patent stented left anterior descending artery. 3. Patient would need aggressive medical therapy for secondary prevention protocol including dual antiplatelet therapy for minimum of12 months and thereafter single antiplatelet there is indicated for an indefinite time. 4. Patient would need an echocardiogram to assess left ventricular ejection fraction and proceed with goal-directed therapy as indicated. Condition Good [facility] Clinical Frailty Scale [facility] Clinical Frailty Scale: Mildly Frail Stress Test Stress Test Performed: No Dominance Dominance: Right JULIETTE JULIETTE Flow: Post- Intervention (JULIETTE-3), Pre-Intervention (JULIETTE-0) Lesion Lesion Complexity: High/C Residual Stenosis post procedu: 0% Disposition JOSE ANTONIO DAVENPORT MD Mar 09, 2024 13:02
--- NOTE | 2024-03-09 13:15 | DVHPN2 ---
Reviewed: Care Plan, H&P, Labs, Medications, Previous Orders, Radiology Changes from previous H/P or p: No Changes Eyes: No Pain, No Vision change, No Conjunctivae inflammation, No Eyelid inflammation, No Other, No Redness ENT: No Ear pain, No Ear discharge, No Nose pain, No Nose discharge, No Nose congestion, No Mouth pain, No Mouth swelling, No Throat pain, No Throat swelling, No Other Cardiovascular: Chest Pain Respiratory: No Cough, No Dry; Shortness of breath; No SOB with excertion, No Wheezing, No Hemoptysis, No Pleuritic Pain, No Sputum, No Other Gastrointestinal: No Nausea, No Vomiting, No Abdominal Pain, No Diarrhea, No Constipation, No Melena, No Hematochezia, No Other Genitourinary: No Dysuria, No Frequency, No Incontinence, No Hematuria, No Retention, No Other Musculoskeletal: No other, No neck pain, No shoulder pain, No arm pain, No back pain, No hand pain, No leg pain, No foot pain Skin: No Rash, No Lesions, No Jaundice, No Bruising, No Other Objective Vitals Vital Signs Date Time Temp Pulse Resp B/P (MAP) Pulse Ox O2 Delivery O2 Flow Rate FiO2 03/09/24 12:10 72 14 187/114 (138) 96 03/09/24 08:30 98.8 98.8 03/09/24 08:00 Room Air* 0 21 Intake/Output Intake and Output 03/09/24 07:00 Intake Total 150 ml Balance 150 ml Intake Oral 0 ml IV Total 150 ml # Voids 2 Medications Current Medications Medications Dose Ordered Sig/Naun Route Start Time Stop Time Status Last Admin Dose Admin Morphine Sulfate 2 mg Q30MP PRN IV 03/08/24 13:45 UNV Acetaminophen 650 mg Q6HP PRN PO 03/08/24 13:45 Lorazepam 0.5 mg Q6HP PRN PO 03/08/24 13:45 Docusate Sodium 100 mg DAILY PO 03/09/24 10:00 03/09/24 10:00 100 MG Nitroglycerin 0.4 mg Q5MINP PRN SL 03/08/24 13:45 Ondansetron HCl 4 mg Q4HP PRN IV 03/08/24 13:45 Nitroglycerin 0.4 mg Q5MINP PRN SL 03/08/24 13:45 UNV Morphine Sulfate 2 mg Q30M PRN IV 03/08/24 13:45 Diagnostic Test (Pha) 1 strip IQ4HR 03/08/24 16:00 03/09/24 12:00 1 STRIP Insulin Human Regular IQ4HR SC 03/08/24 16:00 03/09/24 04:39 2 UNITS Dextrose 50 ml UD PRN IV 03/08/24 13:45 Ceftriaxone Sodium 50 ml @ 100 mls/hr DAILY IV 03/08/24 14:45 03/09/24 12:15 100 MLS/HR Metoprolol Succinate 50 mg DAILY PO 03/09/24 10:00 03/09/24 10:00 50 MG Amlodipine Besylate 10 mg DAILY PO 03/09/24 10:00 03/09/24 11:32 2 MG Aspirin 81 mg DAILY PO 03/10/24 10:00 Clopidogrel Bisulfate 75 mg DAILY PO 03/10/24 10:00 Laboratory Results Laboratory Tests 03/09/24 05:59 Chemistry Test 03/09/24 05:59 Albumin 4.3 g/dL (3.2-4.8) Calcium Level 9.8 mg/dL (8.7-10.4) Magnesium Level 2.1 mg/dL (1.6-2.6) Total Protein 6.9 g/dL (5.7-8.2) Coagulation Test 03/08/24 18:28 03/09/24 05:59 Prothrombin Time 10.7 sec (9.3-11.8) Prothrombin Time INR 1.01 (0.9-1.15) Activated Partial Thromboplast Time 27.7 SEC (24.5-34.5) 24.5 SEC (24.5-34.5) LFT Test 03/09/24 05:59 Alanine Aminotransferase (ALT) 42 U/L (7-40) H Alkaline Phosphatase 91 U/L (46-116) Aspartate Amino Transferase (AST) 73 U/L (13-40) H Total Bilirubin 0.6 mg/dL (0.2-1.0) HgA1c, TSH Test 03/08/24 20:44 Hemoglobin A1c 6.7 % A1C (<5.7) H Urinalysis Test 03/08/24 11:15 Urine Color Light-yellow (Yellow) Urine Clarity Clear (Clear) Urine pH 6.0 (5.0-9.0) Urine Specific [place] 1.018 (1.001-1.035) Urine Protein Trace (Negative) H Urine Ketones Negative (Negative) Urine Blood Negative /uL (Negative) Urine Nitrite Negative (Negative) Urine Bilirubin Negative (Negative) Urine Urobilinogen Normal mg/dL (Negative) Urine Leukocyte Esterase 1+ /uL (Negative) Urine RBC 1 /hpf (0 - 3) Urine WBC 22 /hpf (0 - 3) Urine Squamous Epithelial Cells Few /hpf (<5) Urine Bacteria None seen /hpf (None Seen) Urine Mucus Few (None Seen) Urine Glucose Normal mg/dL (Normal) Labs and/or images reviewed: Labs reviewed by me, Image(s) reviewed by me Assessment/Plan Assessment/Plan Status post Left heart catheterization by Dr. Slaughter stenting of mid RCA, previous LAD stent patent placed on aspirin and Plavix NSTEMI, rule out progressive coronary artery disease Coronary artery disease status post PTCA x1 SANAM in 2012 (off Aspirin) Hypertension: Amlodipine metoprolol Morbid obesity Mild diabetes A1c 6.7: Insulin sliding scale Marijuana use Echocardiogram result pending Time spent 60 minutes Plan discussed with: Patient Date of Service: Mar 09, 2024 Billing Provider: TATUM MURDOCK MD Common Visit Codes: [id number] INP/OBS CARE(HIGH) TATUM MURDOCK MD Mar 09, 2024 13:15
[2024-03-09 15:39] LABS: Hepatitis B Surface Antigen Negative (Negative); Hepatitis C Antibody Negative (Negative)
[2024-03-09] MEDS: ACETAMINOPHEN 325 MG TAB PO PRN (18:22)
[2024-03-09] MEDS: LORazepam 0.5 MG TAB PO PRN (19:46)
--- NOTE | 2024-03-09 21:56 | DVHSR ---
APPROVED REPORT EXAM: Two-dimensional and M-mode echocardiogram with Doppler and color Doppler. Blood Pressure: 157/78 mmHg INDICATION NSTEMI evaluate cardiac function RISK FACTORS Obesity: Height: 6'4", Weight: 325 DIMENSIONS LVDd5.6 (3.8-5.7cm)LA (2D)4.8 (1.9-4.0cm)Aortic Root4.4 (2.0-3.7cm) LVDs3.9 (2.5-4.0cm)LA (MM) (1.9-4.0cm)Aortic Cusp Exc2.0 (1.5-2.0cm) EF (%) 56.0 (55-70%)Rt. Atrium4.8 (1.9-4.0cm)Asc. Aorta cm IVSd1.3 (0.7-1.1cm)RV (D)4.9 (1.8-2.4cm) PWd1.2 (0.7-1.1cm) Mitral Valve MitralMitral Stenosis E wave0.86m/sMV Mean GR.mmHg A wave1.16m/sMV Peak GR.mmHg E/A ratio0.72D MVAcm2 DECEL [id number] 1/2 Timems Aortic Valve Aortic ValveAortic Stenosis V11.22m/Brooke Mean GR.6mmHg V21.63m/Brooke Peak GR.11mmHg LVOT Diameter2.4 (1.8-2.4cm)Doppler AVA3.38cm2 Pulmonic Valve V21.42m/s Other Information Technically limited study due to body habitus. Conclusion Normal left ventricular size and dimension. Normal left ventricular systolic function with estimated ejection fraction 55%. There is a grade 1 diastolic dysfunction. Normal right ventricular size and dimension. Normal right ventricular systolic function. Normal biatrial size and dimension. Normal aortic valve structure and function. Normal mitral valve structure and function. Normal tricuspid valve structure and function. The pulmonary valve is grossly normal. No pericardial effusion.
[2024-03-10 01:00] VITALS: BP 167/84; PULSE 76; RESP 16; TEMP 98.3; O2SAT 97
[2024-03-10 05:00] VITALS: BP 167/97; PULSE 78; RESP 18; TEMP 98.2; O2SAT 96
[2024-03-10 08:00] VITALS: PULSE 77
[2024-03-10 08:08] VITALS: PULSE 83; RESP 20; O2SAT 94
[2024-03-10 09:00] VITALS: BP 156/83; PULSE 83; RESP 20; TEMP 99.3; O2SAT 94
[2024-03-10] MEDS: ASPirin 81 mg TAB PO SCH (09:23)
[2024-03-10] MEDS: CLOPIDOGREL BISULFATE 75 MG TAB PO SCH (09:24)
--- NOTE | 2024-03-10 10:53 | DVHPN2 ---
Reviewed: Care Plan, H&P, Labs, Medications, Previous Orders, Radiology Changes from previous H/P or p: No Changes Eyes: No Pain, No Vision change, No Conjunctivae inflammation, No Eyelid inflammation, No Other, No Redness ENT: No Ear pain, No Ear discharge, No Nose pain, No Nose discharge, No Nose congestion, No Mouth pain, No Mouth swelling, No Throat pain, No Throat swelling, No Other Cardiovascular: Chest Pain Respiratory: No Cough, No Dry; Shortness of breath; No SOB with excertion, No Wheezing, No Hemoptysis, No Pleuritic Pain, No Sputum, No Other Gastrointestinal: No Nausea, No Vomiting, No Abdominal Pain, No Diarrhea, No Constipation, No Melena, No Hematochezia, No Other Genitourinary: No Dysuria, No Frequency, No Incontinence, No Hematuria, No Retention, No Other Musculoskeletal: No other, No neck pain, No shoulder pain, No arm pain, No back pain, No hand pain, No leg pain, No foot pain Skin: No Rash, No Lesions, No Jaundice, No Bruising, No Other Objective Vitals Vital Signs Date Time Temp Pulse Resp B/P (MAP) Pulse Ox O2 Delivery O2 Flow Rate FiO2 03/10/24 09:23 83 156/83 03/10/24 09:00 99.3 20 94 99.3 03/10/24 08:08 Room Air* 0 21 Intake/Output Intake and Output 03/10/24 07:00 Intake Total 1450 ml Balance 1450 ml Intake Oral 1400 ml IV Total 50 ml # Voids 7 # Bowel Movements 1 Medications Current Medications Medications Dose Ordered Sig/Naun Route Start Time Stop Time Status Last Admin Dose Admin Morphine Sulfate 2 mg Q30MP PRN IV 03/08/24 13:45 UNV Acetaminophen 650 mg Q6HP PRN PO 03/08/24 13:45 03/09/24 18:22 650 MG Lorazepam 0.5 mg Q6HP PRN PO 03/08/24 13:45 03/09/24 19:46 0.5 MG Docusate Sodium 100 mg DAILY PO 03/09/24 10:00 03/10/24 09:23 100 MG Nitroglycerin 0.4 mg Q5MINP PRN SL 03/08/24 13:45 Ondansetron HCl 4 mg Q4HP PRN IV 03/08/24 13:45 Nitroglycerin 0.4 mg Q5MINP PRN SL 03/08/24 13:45 UNV Morphine Sulfate 2 mg Q30M PRN IV 03/08/24 13:45 Diagnostic Test (Pha) 1 strip IQ4HR 03/08/24 16:00 03/10/24 08:02 1 STRIP Insulin Human Regular IQ4HR SC 03/08/24 16:00 03/10/24 08:02 2 UNITS Dextrose 50 ml UD PRN IV 03/08/24 13:45 Ceftriaxone Sodium 50 ml @ 100 mls/hr DAILY IV 03/08/24 14:45 03/10/24 09:22 100 MLS/HR Metoprolol Succinate 50 mg DAILY PO 03/09/24 10:00 03/10/24 09:23 50 MG Amlodipine Besylate 10 mg DAILY PO 03/09/24 10:00 03/10/24 09:22 10 MG Aspirin 81 mg DAILY PO 03/10/24 10:00 03/10/24 09:23 81 MG Clopidogrel Bisulfate 75 mg DAILY PO 03/10/24 10:00 03/10/24 09:24 75 MG Atorvastatin Calcium 80 mg HS PO 03/10/24 22:00 Laboratory Results Laboratory Tests 03/09/24 05:59 Urinalysis Test 03/08/24 11:15 Urine Color Light-yellow (Yellow) Urine Clarity Clear (Clear) Urine pH 6.0 (5.0-9.0) Urine Specific [place] 1.018 (1.001-1.035) Urine Protein Trace (Negative) H Urine Ketones Negative (Negative) Urine Blood Negative /uL (Negative) Urine Nitrite Negative (Negative) Urine Bilirubin Negative (Negative) Urine Urobilinogen Normal mg/dL (Negative) Urine Leukocyte Esterase 1+ /uL (Negative) Urine RBC 1 /hpf (0 - 3) Urine WBC 22 /hpf (0 - 3) Urine Squamous Epithelial Cells Few /hpf (<5) Urine Bacteria None seen /hpf (None Seen) Urine Mucus Few (None Seen) Urine Glucose Normal mg/dL (Normal) Labs and/or images reviewed: Labs reviewed by me, Image(s) reviewed by me Assessment/Plan Assessment/Plan Status post Left heart catheterization by Dr. Slaughter stenting of mid RCA, previous LAD stent patent placed on aspirin and Plavix NSTEMI, rule out progressive coronary artery disease Coronary artery disease status post PTCA x1 SANAM in 2013 (off Aspirin) Hypertension: Amlodipine metoprolol Morbid obesity Mild diabetes A1c 6.7: Insulin sliding scale Marijuana use Echocardiogram 55 percent ejection fraction Time spent 45 mts Patient feels better without any chest pain with stable vital signs and wants to go home. Plan discussed with: Patient Date of Service: Mar 10, 2024 Billing Provider: TATUM MURDOCK MD Common Visit Codes: [id number] INP/OBS CARE(HIGH) TATUM MURDOCK MD Mar 10, 2024 10:53
--- NOTE | 2024-03-10 10:58 | DVHDS2 ---
Discharge Summary Date of Admission Mar 08, 2024 at 13:34 Date of Discharge: Mar 10, 2024 Admitting Diagnosis Chest pain Wounds: Left heart catheterization Labs/Diagnostic Data: Laboratory Results Test 03/10/24 07:58 03/09/24 13:58 03/09/24 05:59 03/08/24 20:44 POC Glucose 150 mg/dl (70-106) Hepatitis B Surface Antigen Negative (Negative) Hepatitis C Antibody Negative (Negative) White Blood Count 8.6 10^3/uL (4.4-10.8) Red Blood Count 4.72 10^6/uL (4.5-5.90) Hemoglobin 14.0 g/dL (13.5-17.5) Hematocrit 40.8 % (41.0-53.0) Mean Corpuscular Volume 86.4 fL (80.0-100.0) Mean Corpuscular Hemoglobin 29.7 pg (28.0-32.0) Mean Corpuscular Hemoglobin Concent 34.4 g/dL (32.0-36.0) Red Cell Distribution Width 14.2 % (11.8-14.3) Platelet Count 186 10^3/uL (140-450) Mean Platelet Volume 8.4 fL (6.9-10.8) Neutrophils (%) (Auto) 70.9 % (37.0-80.0) Lymphocytes (%) (Auto) 21.4 % (10.0-50.0) Monocytes (%) (Auto) 7.5 % (0.0-12.0) Eosinophils (%) (Auto) 0.1 % (0.0-7.0) Basophils (%) (Auto) 0.1 % (0.0-2.0) Neutrophils # (Auto) 6.1 10 ^3/uL (1.6-8.6) Lymphocytes # (Auto) 1.8 10 ^3/uL (0.4-5.4) Monocytes # (Auto) 0.6 10 ^3/uL (0-1.3) Eosinophils # (Auto) 0 10 ^3/uL (0-0.8) Basophils # (Auto) 0 10 ^3/uL (0-0.2) Nucleated Red Blood Cells 0.5 % Activated Partial Thromboplast Time 24.5 SEC (24.5-34.5) Sodium Level 140 mmol/L (136-145) Potassium Level 3.7 mmol/L (3.5-5.1) Chloride Level 108 mmol/L (98-107) Carbon Dioxide Level 21 mmol/L (20-31) Anion Gap 11 (5-15) Blood Urea Nitrogen 13 mg/dL (9-23) Creatinine 1.05 mg/dL (0.700-1.30) Glomerular Filtration Rate Calc 80 mL/min (>90) BUN/Creatinine Ratio 12.4 (10.0-20.0) Serum Glucose 135 mg/dL (74-106) Calcium Level 9.8 mg/dL (8.7-10.4) Magnesium Level 2.1 mg/dL (1.6-2.6) Total Bilirubin 0.6 mg/dL (0.2-1.0) Aspartate Amino Transferase (AST) 73 U/L (13-40) Alanine Aminotransferase (ALT) 42 U/L (7-40) Alkaline Phosphatase 91 U/L (46-116) Total Protein 6.9 g/dL (5.7-8.2) Albumin 4.3 g/dL (3.2-4.8) Hemoglobin A1c 6.7 % A1C (<5.7) Troponin I High Sensitivity 10787 ng/L (</=54) Test 03/08/24 18:28 03/08/24 11:15 03/08/24 08:51 Prothrombin Time 10.7 sec (9.3-11.8) Prothrombin Time INR 1.01 (0.9-1.15) Urine Color Light-yellow (Yellow) Urine Clarity Clear (Clear) Urine pH 6.0 (5.0-9.0) Urine Specific [place] 1.018 (1.001-1.035) Urine Protein Trace (Negative) Urine Ketones Negative (Negative) Urine Blood Negative /uL (Negative) Urine Nitrite Negative (Negative) Urine Bilirubin Negative (Negative) Urine Urobilinogen Normal mg/dL (Negative) Urine Leukocyte Esterase 1+ /uL (Negative) Urine RBC 1 /hpf (0 - 3) Urine WBC 22 /hpf (0 - 3) Urine Squamous Epithelial Cells Few /hpf (<5) Urine Bacteria None seen /hpf (None Seen) Urine Mucus Few (None Seen) Urine Glucose Normal mg/dL (Normal) Urine Opiates Screen Neg (NEGATIVE) Urine Fentanyl Screen Neg (NEGATIVE) Urine Barbiturates Screen Neg (NEGATIVE) Urine Phencyclidine Screen Neg (NEGATIVE) Urine Amphetamines Screen Neg (NEGATIVE) Urine Benzodiazepines Screen Neg (NEGATIVE) Urine Cocaine Screen Neg (NEGATIVE) Urine Cannabinoids Screen Pos (NEGATIVE) D-Dimer, Quantitative 0.49 mg/L FEU (0.0-0.49) B-Type Natriuretic Peptide 87.56 pg/mL (0-100) Triglycerides Level 148 mg/dL (< 150) Cholesterol Level 207 mg/dL (< 200) LDL Cholesterol 145 mg/dL (< 100) HDL Cholesterol 50 mg/dL (40-59) Thyroid Stimulating Hormone (TSH) 1.77 uIU/mL (0.55-4.78) Other Laboratory Tests 03/09/24 05:59 Brief Hx & Hospital Course: 63-year-old male with a history of hypertension morbidly obese diabetes history of coronary artery disease status post PTCA x1 in 2012 not taking aspirin came in for chest pain. Left heart catheterization by Dr. Davenport with the stenting of mid RCA. Previous LAD stent Patient. Placed on aspirin and Plavix amlodipine metoprolol. At the time of discharge patient is afebrile with a stable vital signs echo is 55 percent ejection fraction. Patient wants to go home. Discharged home on aspirin Plavix lisinopril metoprolol Lipitor amlodipine. He will follow up with the [place] Dr Consults/Reason for consult Cardiology Dr.Al Salmeron Operations or Procedures Left heart catheterization and stenting Condition at Discharge: Fair Final Diagnosis/Problems List Status post Left heart catheterization by Dr. Davenport stenting of mid RCA, previous LAD stent patent placed on aspirin and Plavix NSTEMI, rule out progressive coronary artery disease Coronary artery disease status post PTCA x1 SANAM in 2013 (off Aspirin) Hypertension: Amlodipine metoprolol Morbid obesity Mild diabetes A1c 6.7: Insulin sliding scale Marijuana use Echocardiogram 55 percent ejection fraction Discharge Disposition: Home Discharge Instruct/Medications Diet: Cardiac 2g Na,low cholest Activity: Light activity Follow Up/Referral: [facility] Use medications as prescribed including aspirin Plavix lisinopril Lipitor and metoprolol Medications: [facility]ix Lip[facility] Per patient he has aspirin at home 39 (Time taken for discharge summary 39 minutes) Discharge Statement: "Patient was advised to return to the ER or call 911 if any headaches, dizziness, shortness of breath, chest pain, abdominal pain, bleeding, fevers, or worsening of medical condition. Patient was counseled about treatment plan, medications, possible side effects, patientverbalized understanding. All questions were answered to the best of my ability. This discharge took greater then 30 minutes in planning, reviewing documentation, counseling the patient, and discussing with other team members." ASSESSMENT ASSESSMENT Assessment Status post Left heart catheterization by Dr. Davenport stenting of mid RCA, previous LAD stent patent placed on aspirin and Plavix NSTEMI, rule out progressive coronary artery disease Coronary artery disease status post PTCA x1 SANAM in 2013 (off Aspirin) Hypertension: Amlodipine metoprolol Morbid obesity Mild diabetes A1c 6.7: Insulin sliding scale Marijuana use Echocardiogram 55 percent ejection fraction Date of Service: Mar 10, 2024 Billing Provider: TATUM MURDOCK MD Common Visit Codes: [id number] DISCH DAY >30min TATUM MURDOCK MD Mar 10, 2024 10:58
[2024-03-10] MEDS ORDERED: ATOR-507 PO (11:03)
[2024-03-10] MEDS ORDERED: CLOP75TA28 PO (11:03)
[2024-03-10] MEDS ORDERED: ASPI-628 PO (11:03)
[2024-03-10 11:43] VITALS: BP 156/83; PULSE 83; RESP 20; TEMP 99.3; O2SAT 94
--- NOTE | 2024-03-10 13:41 | DVHPN2 ---
Consult Progress Note Subjective Other Systems: Patient denies any cardiac symptoms at time of assessment. The patient remains in normal sinus rhythm at time of assessment. Incision site to right wrist is open to air, no signs of hematoma or bleeding Objective vital signs Vital Sign Date Time Temp Pulse Resp B/P (MAP) Pulse Ox O2 Delivery O2 Flow Rate FiO2 03/10/24 11:43 99.3 83 20 94 03/10/24 09:23 156/83 03/10/24 08:08 Room Air* 0 21 Total Intake and Output 03/09/24 03/09/24 03/10/24 15:00 23:00 07:00 Intake Total 50 ml 1000 ml 400 ml Balance 50 ml 1000 ml 400 ml medications Current Medications Medications Dose Ordered Sig/Naun Route Start Time Stop Time Status Last Admin Dose Admin Morphine Sulfate 2 mg Q30MP PRN IV 03/08/24 13:45 UNV Acetaminophen 650 mg Q6HP PRN PO 03/08/24 13:45 03/09/24 18:22 650 MG Lorazepam 0.5 mg Q6HP PRN PO 03/08/24 13:45 03/09/24 19:46 0.5 MG Docusate Sodium 100 mg DAILY PO 03/09/24 10:00 03/10/24 09:23 100 MG Nitroglycerin 0.4 mg Q5MINP PRN SL 03/08/24 13:45 Ondansetron HCl 4 mg Q4HP PRN IV 03/08/24 13:45 Nitroglycerin 0.4 mg Q5MINP PRN SL 03/08/24 13:45 UNV Morphine Sulfate 2 mg Q30M PRN IV 03/08/24 13:45 Diagnostic Test (Pha) 1 strip IQ4HR 03/08/24 16:00 03/10/24 12:17 1 STRIP Insulin Human Regular IQ4HR SC 03/08/24 16:00 03/10/24 08:02 2 UNITS Dextrose 50 ml UD PRN IV 03/08/24 13:45 Ceftriaxone Sodium 50 ml @ 100 mls/hr DAILY IV 03/08/24 14:45 03/10/24 09:22 100 MLS/HR Metoprolol Succinate 50 mg DAILY PO 03/09/24 10:00 03/10/24 09:23 50 MG Amlodipine Besylate 10 mg DAILY PO 03/09/24 10:00 03/10/24 09:22 10 MG Aspirin 81 mg DAILY PO 03/10/24 10:00 03/10/24 09:23 81 MG Clopidogrel Bisulfate 75 mg DAILY PO 03/10/24 10:00 03/10/24 09:24 75 MG Atorvastatin Calcium 80 mg HS PO 03/10/24 22:00 Examination: GENERAL:Normal, LUNGS:Normal, CVS:Normal, NEURO:Normal laboratory and microbiology Laboratory Tests 03/09/24 05:59 Test 03/09/24 05:59 Range/Units Serum Glucose 135 H 74-106 mg/dL Problem List/Assessment/Plan Problem List/Assessment/Plan High risk NSTEMI s/p PTCA X 2 SANAM to right coronary artery Hx Coronary artery disease status post PTCA x1 SANAM in 2012 (off Aspirin) Hypertension Hyperlipidemia Type 2 diabetes mellitus, newly diagnosed (Hgb A1c 6.7%) Morbid obesity Marijuana use Plan/Recommendation (Dr. Mancia): * Echocardiogram reveals EF 55% * Dual antiplatelet therapy, Plavix and aspirin * BP control * Lipid-lowering agent * Risk factor modifications, counseled * Dietary and lifestyle changes * Adherence to medication regimen The patient underwent a coronary angiogram with left heart catheterization on 03/09/2024 in which is successful PCI to mid right coronary artery occlusion with two drug-eluting stents was performed. We will recommend for the patient to continue dual antiplatelet therapy, beta-marlin, lipid-lowering agent, and blood pressure control. The patient states he will follow up with his kelp gatherer within the OR system at [facility] within 1-2 weeks post discharge. There is no further inpatient cardiac workup indicated at this time. Thank you for allowing us to care for this patient. Please call with any questions or concerns. This medical document was created using an electronic medical record system with voice recognition software and computerized dictation system. Although this document has been carefully reviewed, there might still be some phonetic and typographical errors. Occasional wrong-word or ``sound-alike substitutions may have occurred due to the inherent limitations of voice recognition software. These areas are purely typographical due to imperfections of the software programs and do not reflect any compromise in the patient's medical care. Please read the chart carefully and recognize, using context, where these substitutions have occurred. Plan discussed with: Patient Date of Service: Mar 10, 2024 Billing Provider: MAGDA MANCIA MD Common Visit Codes: [id number] INP/OBS CARE(HIGH) MEL CUNHA [facility] Mar 10, 2024 13:41
[2024-03-10] MEDS ORDERED: ATORVASTATIN 20 MG TAB PO SCH (22:00)
== END 2024-03-10 13:55 | disposition home or self-care (01) | DRG 322 ==
LOC: ER 08:39 → TELE 13:34 → TELE-WESTW 22:28
PROVIDERS: ATTEND Family Medicine
PROC: 027035Z Dilation of Coronary Artery, One Artery with Two Drug-eluting Intraluminal Devices, Percutaneous Approach (ICD-10-PCS; principal; 2024-03-09)
PROC: 4A023N7 Measurement of Cardiac Sampling and Pressure, Left Heart, Percutaneous Approach (ICD-10-PCS; 2024-03-09)
PROC: B211YZZ Fluoroscopy of Multiple Coronary Arteries using Other Contrast (ICD-10-PCS; 2024-03-09)
DX: I21.4 Non-ST elevation (NSTEMI) myocardial infarction (principal); N39.0 Urinary tract infection, site not specified; Z68.41 Body mass index [BMI] 40.0-44.9, adult; E66.01 Morbid (severe) obesity due to excess calories; I25.10 Atherosclerotic heart disease of native coronary artery without angina pectoris; E11.22 Type 2 diabetes mellitus with diabetic chronic kidney disease; N18.9 Chronic kidney disease, unspecified; E78.5 Hyperlipidemia, unspecified; J45.909 Unspecified asthma, uncomplicated; I12.9 Hypertensive chronic kidney disease with stage 1 through stage 4 chronic kidney disease, or unspecified chronic kidney disease; G47.30 Sleep apnea, unspecified; I44.0 Atrioventricular block, first degree; Z95.5 Presence of coronary angioplasty implant and graft; Z83.3 Family history of diabetes mellitus; Z82.49 Family history of ischemic heart disease and other diseases of the circulatory system
CPT/HCPCS: 36415; 71046; 80048; 80053; 80061; 80307; 81001; 82962; 83036; 83735; 83880; 84443; 84484; 85025; 85379; 85610; 85730; 86803; 86850; 86900; 86901; 87340; 93005; 93306; 96365; 96375; 99152; 99291; G0378; J1815; J2250; Q9967